=== PATIENT | female | born 2000 | race Caucasian/White ===

== ENCOUNTER 2018-07-14 21:30 | Emergency (ER) | payer SELFPAY ==
[~2018-07-14] VITALS: Ht 165.1 cm; Wt 68.5 kg
--- OUTSIDE RECORDS SUMMARY | 2018-07-14 21:35 | XMS REPORT | Referral Summary ---
Author Author [facility] Organization [facility] Address Unknown Phone Unavailable Encounter Date(s): 06/03/15 - 06/03/15 [facility] [address] [place] [address] [facility] Discharge Diagnosis: Cough Discharge Disposition: 01-Home or Self Care Attending Physician: Jeanne Morales Attending Physician: Provider, Immediate Care Admitting Physician: Provider, Immediate Care Vital Signs Most recent to 1 oldest [Reference Range]: Temperature Oral 36.7 degC [36.0-37.6 degC] (06/03/15 6:36 PM) Peripheral Pulse 120 bpm Rate [55-90 bpm] *HI* (06/03/15 6:36 PM) Blood Pressure 100/65 mmHg [90-138/45-84 mmHg] (06/03/15 6:36 PM) SpO2 99 % (06/03/15 6:36 PM) Problem List No data available for this section Allergies, Adverse Reactions, Alerts No Known Allergies Medications No Known Medications Results No data available for this section Immunizations No data available for this section Procedures No data available for this section Social History No data available for this section Assessment and Plan No data available for this section
--- OUTSIDE RECORDS SUMMARY | 2018-07-14 21:35 | XMS REPORT | Referral Summary ---
Author Author [facility] Organization [facility] Address Unknown Phone Unavailable Care Team Providers Care Skidder Name Role Phone No PCP, Pt States PCP Encounter VC Date(s): 07/12/17 - 07/12/17 [facility] [address] [place], [place] [id number] Encounter Diagnosis Threatened miscarriage (Discharge Diagnosis) - 07/12/17 Blood type, Rh negative (Discharge Diagnosis) - 07/12/17 Discharge Disposition: 01-Home or Self Care Attending Physician: Garfield Jimenez DO Admitting Physician: Garfield Jimenez DO Vital Signs Most recent to 1 oldest [Reference Range]: Temperature Oral 37.1 degC [35.8-37.3 degC] (07/12/17 8:59 AM) Peripheral Pulse 86 bpm Rate [60-100 bpm] (07/12/17 11:48 AM) Respiratory Rate 14 br/min [14-20 br/min] (07/12/17 11:48 AM) Blood Pressure 107/79 mmHg [90-140/60-90 mmHg] (07/12/17 11:48 AM) SpO2 100 % (07/12/17 11:48 AM) Problem List No Known Problems Allergies, Adverse Reactions, Alerts No Known Allergies Medications No data available for this section Results Chemistry Most recent to 1 oldest [Reference Range]: Screen, Positive Urine NPT *ABN* (07/12/17 9:31 AM) Beta hCG Qnt 75 mIU/mL 1 (07/12/17 9:54 AM) 1Result Comment: Normal Ranges for Quantitative Beta-HCG are as follows: Non- Females: 0 - 5 Gestation Wks 95% Range 0.2 - 1 4 - 50 1 - 2 50 - 500 2 - 3 100 - 5000 3 - 4 500 - 10,000 4 - 5 1,000 - 50,000 5 - 6 10,000 - 100,000 6 - 8 15,000 - 200,000 8 - 12 10,000 - 100,000 Urinalysis Most recent to 1 oldest [Reference Range]: UA Color Yellow (07/12/17 9:34 AM) UA Appear Cloudy *ABN* (07/12/17 9:34 AM) UA pH [5.0-8.0] 5.0 (07/12/17 9:34 AM) UA Leuk Est Negative [Negative] (07/12/17 9:34 AM) UA Nitrite Negative [Negative] (07/12/17 9:34 AM) UA Protein Pos 1+ [Negative] *ABN* (07/12/17 9:34 AM) UA Glucose Negative [Negative] (07/12/17 9:34 AM) UA Ketones Negative [Negative] (07/12/17 9:34 AM) UA Urobilinogen Negative [<1.0] (07/12/17 9:34 AM) UA Bili [Negative] Negative (07/12/17 9:34 AM) UA Blood [Negative] Pos 3+ *ABN* (07/12/17 9:34 AM) UA Spec Grav 1.020 [1.003-1.030] (07/12/17 9:34 AM) Type Venous (07/12/17 9:56 AM) UA WBC [0-4] 0-2 (07/12/17 9:34 AM) UA RBC [0-2] 20-50 *ABN* (07/12/17 9:34 AM) Epithelial Cells 0-2 (07/12/17 9:34 AM) UA Bacteria Rare (07/12/17 9:34 AM) UA Mucous Present (07/12/17 9:34 AM) Blood Bank Results Most recent to 1 oldest [Reference Range]: Rh Type NEG (07/12/17 9:54 AM) Microbiology Reports TEST: Affirm Vaginitis Panel STATUS: Auth (Verified) BODY SITE: SOURCE: Cervix/Vaginal COLLECTED DATE/TIME: 07/12/17 9:54 AM Affirm Vaginitis Panel Negative for Trichomonas vaginalis Negative for Gardnerella vaginalis Negative for Lorrie species Immunizations No data available for this section Procedures No data available for this section Social History No data available for this section Assessment and Plan No data available for this section
--- OUTSIDE RECORDS SUMMARY | 2018-07-14 21:36 | XMS REPORT | Continuity of Care Document ---
Author Author [facility] Organization [facility] Address Unknown Phone Unavailable Allergies Active Description Code Type Severity Reaction Onset Reported/Identified Relationship to Patient Clinical Status Yes No Known Allergies No Known Allergies Drug Allergy Unknown N/A 2013 Yes No Known Allergies NKMA N/A N/A 06/03/2015 Yes No Known Allergies NKMA N/A N/A 06/03/2015 Medications Medication Packaging Start Date Stop Date Route Dosage Sig RHo (D) immune globulin(RHo (D) immune globulin 250 intl units/1 mL injectable solution) 1 mL 07/12/2017 07/12/2017 IntraMuscular 50 mcg 50 mcg=1 mL, IntraMuscular, Once Problems Date Dx Coded Attending Type Code Diagnosis Diagnosed By 07/14/2017 Jimenez Jacob Final O20.0 Threatened 07/14/2017 Jimenez Jacob Final O26.891 Other specified related conditions, first trimester 07/14/2017 Jimenez Jacob Reason O99.89 Other specified diseases and conditions complicating , childbirth 07/14/2017 Jimenez Jacob Final Z3A.01 Less than 8 weeks gestation of 07/14/2017 Jimenez Jacob Final Z77.22 Contact with and (suspected) exposure to environmental tobacco smoke (acute Procedures There is no data. <section xmlns="urn:hl7-org:v3" xmlns:xsi="http:// www.w3.org/2001/XMLSchema-instance"> <templateId root= "[id number]" /> <templateId root= "[id number]2.2.3.1" /> <code codeSystemName="LOINC" codeSystem= "[id number]" code="08090-7" displayName="Results" /> <title>Results< /title> <text> <table> <thead> <tr> <th>Test</th> <th>Result</th> <th>Range</th> </tr> </thead> < tbody> <tr> < colspan="10">UR TEST - 10/01/13 15:40< /th> </tr> <tr> <td>UR TEST</td> <td> NEGATIVE </td> <td>NEGATIVE</td> </tr> <tr> <th colspan="10">URINALYSIS, ROUTINE - 10/01/13 15:40</th> </tr> <tr> <td>UA LEUKOCYTE ESTERASE DIPSTICK</td> <td>TRACE </td> <td>NEGATIVE</td> </tr> <tr> <td>UA NITRITE DIPSTICK </td> <td>NEGATIVE </td> <td>NEGATIVE</td> </tr> <tr> <td>UA PROTEIN DIPSTICK</td> <td>TRACE </td> < td>NEGATIVE</td> </tr> <tr> <td>UA GLUCOSE DIPSTICK</td> <td>NEGATIVE </td> <td>NEGATIVE</td> </tr> <tr > <td>UA KETONE DIPSTICK</td> <td>NEGATIVE </td> <td> NEGATIVE</td> </tr> <tr> <td>UA UROBILINOGEN DIPSTICK</td > <td>NORMAL </td> <td>NORMAL</td> </tr> <tr> <td>UA BILIRUBIN DIPSTICK</td> <td>NEGATIVE </td> <td> NEGATIVE</td> </tr> <tr> <td>UA BLOOD DIPSTICK</td> <td>NEGATIVE </td> <td>NEGATIVE</td> </tr> <tr> <td>UA SPECIFIC GRAVITY</td> <td>1.015 </td> <td>1.015- 1.025</td> </tr> <tr> <td>UR PH</td> <td>5.0 </ td> <td>5.0-7.0</td> </tr> <tr> < colspan="10 ">UA MICROSCOPIC - 10/01/13 15:40</th> </tr> <tr> <td>UA BACTERIA</td> <td>1+ </td> <td>NEGATIVE</td> </tr> <tr> <td>UA EPITHELIAL CELLS</td> <td>2+ epi/hpf</td> <td>0 - 1+</td> </tr> <tr> <td>UA MUCUS</td> <td>3+ </td> <td>NEG TO 1+</td> </tr> <tr> < td>UA RBC</td> <td>0-3 rbc/hpf</td> <td>0 - 3</td> </tr > <tr> <td>UA VOLUME FOR EXAM</td> <td>12.0 mL</td> <td>(12mL STD)</td> </tr> <tr> <td>UA WBC</td> <td>2-5 wbc/hpf</td> <td>0 - 5</td> </tr> <tr> < colspan="10">GLUCOSE (POC) - 10/01/13 15:58</th> </tr> <tr> <td>GLUCOSE (POC)</td> <td>107 mg/dL</td> <td>70 -99</td> </tr> <tr> < colspan="10">CBC W/DIFF - 16:00</th> </tr> <tr> <td>BASOPHIL #</td> <td >0.1 k/cumm</td> <td>0.0-0.2</td> </tr> <tr> <td >BASOPHIL %</td> <td>1 %</td> <td>0-1</td> </tr > <tr> <td>EOSINOPHIL #</td> <td>0.2 k/cumm</td> <td>0.1-0.5</td> </tr> <tr> <td>EOSINOPHIL %</td > <td>2 %</td> <td>2-4</td> </tr> <tr> <td>GRANULOCYTE #</td> <td>7.6 k/cumm</td> <td>2.0-9.0</ td> </tr> <tr> <td>GRANULOCYTE %</td> <td> 68 %</td> <td>50-75</td> </tr> <tr> <td> LYMPHOCYTE #</td> <td>2.3 k/cumm</td> <td>1.0-4.0</td> </tr> <tr> <td>LYMPHOCYTE %</td> <td>21 %</td> <td>20-30</td> </tr> <tr> <td>MEAN CELL HGB</td > <td>24.4 pg</td> <td>27.0-33.0</td> </tr> <tr > <td>MEAN CELL HGB CONCENTRATION</td> <td>32.4 g/dL</td> <td>32.0-37.0</td> </tr> <tr> <td>MEAN CELL VOLUME< /td> <td>75.4 fl</td> <td>79.0-95.0</td> </tr> < tr> <td>MONOCYTE #</td> <td>0.9 k/cumm</td> <td>0.1- 1.0</td> </tr> <tr> <td>MONOCYTE %</td> <td> 8 %</td> <td>4-6</td> </tr> <tr> <td>RED BLOOD CELL</td> <td>4.51 m/cumm</td> <td>4.00-6.00</td> </tr> <tr> <td>RED CELL DISTRIBUTION WIDTH</td> <td> 15.4 %</td> <td>11.0-15.6</td> </tr> <tr> < td>WHITE BLOOD CELL</td> <td>11.0 k/cumm</td> <td>5.0-10.0</td > </tr> <tr> <td>HEMOGLOBIN</td> <td>11.0 gm/dL< /td> <td>12.0-16.0</td> </tr> <tr> <td> HEMATOCRIT</td> <td>34.0 %</td> <td>36.0-46.0</td> </tr> <tr> <td>PLATELET COUNT</td> <td>303 k/cumm</td> <td>150-450</td> </tr> <tr> <th colspan="10"> METABOLIC PANEL, BASIC - 10/01/13 16:00</th> </tr> <tr> < td>POTASSIUM</td> <td>4.5 mmol/L</td> <td>3.5-5.3</td> </tr> <tr> <td>ANION GAP</td> <td>12 mmol/L</td> <td>5-15</td> </tr> <tr> <td>GLUCOSE</td> < td>105 mg/dL</td> <td>70-99</td> </tr> <tr> <td> CALCIUM</td> <td>9.3 mg/dL</td> <td>8.5-10.1</td> </tr > <tr> <td>BLOOD UREA NITROGEN</td> <td>8 mg/dL</td> <td>7-20</td> </tr> <tr> <td>CREATININE</td> <td>0.6 mg/dL</td> <td>0.5-1.0</td> </tr> <tr> <td>SODIUM</td> <td>144 mmol/L</td> <td>135-148</td> </tr> <tr> <td>CHLORIDE</td> <td>106 mmol/L</td> <td>98-110</td> </tr> <tr> <td>CARBON DIOXIDE</ td> <td>26 mmol/L</td> <td>21-32</td> </tr> <tr > <th colspan="10"> Screen, Urine NPT - 07/12/17 09:31</th> </tr> <tr> <td> Screen, Urine NPT</td> < td>Positive NA</td> <td /> </tr> <tr> <th colspan="10">Urinalysis with reflex microscopic - 07/12/17 09:34</th> </ tr> <tr> <td>Appearance</td> <td>Cloudy NA</td> <td /> </tr> <tr> <td>Bilirubin</td> <td> Negative NA</td> <td>Negative</td> </tr> <tr> < td>Blood</td> <td>Pos 3+ NA</td> <td>Negative</td> </tr > <tr> <td>Color</td> <td>Yellow NA</td> <td / > </tr> <tr> <td>Glucose, Urine</td> <td> Negative </td> <td>Negative</td> </tr> <tr> <td> Ketones</td> <td>Negative </td> <td>Negative</td> </tr > <tr> <td>Leukocyte Esterase</td> <td>Negative NA</td > <td>Negative</td> </tr> <tr> <td>Nitrites</td > <td>Negative NA</td> <td>Negative</td> </tr> < tr> <td>pH</td> <td>5.0 NA</td> <td>5.0-8.0</td> </tr> <tr> <td>Protein</td> <td>Pos 1+ NA</td> <td>Negative</td> </tr> <tr> <td>Specific [place]</ td> <td>1.020 NA</td> <td>1.003-1.030</td> </tr> <tr> <td>UA Collection type</td> <td>Clean Catch NA</td> <td /> </tr> <tr> <td>Urobilinogen</td> < td>Negative mg/dL</td> <td><1.0</td> </tr> <tr> <th colspan="10">Urine Microscopic - 07/12/17 09:34</th> </tr> <tr> <td>Bacteria</td> <td>Rare NA</td> <td /> </tr> <tr> <td>Epithelial Cells</td> <td>0 /HPF</td > <td /> </tr> <tr> <td>RBC, Urine</td> <td>20 /HPF</td> <td>0-2</td> </tr> <tr> <td> Urine Mucus</td> <td>Present NA</td> <td /> </tr> <tr> <td>WBC, Urine</td> <td>0 /HPF</td> <td>0-4</ td> </tr> <tr> <th colspan="10">RH Type - 07/12/17 09:54< /th> </tr> <tr> <td>RH Type</td> <td> NA</td> <td /> </tr> <tr> <th colspan="10">HCG Quantitative - 07/12/17 09:54</th> </tr> <tr> <td>HCG Quantitative</td> <td>75 mIU/mL</td> <td /> </tr> <tr> <th colspan="10">URINE CULTURE - 07/12/17 19:55</th> </ tr> <tr> <td>Microbiology</td> <td> </td> <td /> </tr> <tr> <th colspan="10">URINALYSIS, ROUTINE - 19:55</th> </tr> <tr> <td>UA SPECIFIC GRAVITY</td> <td>1.022 </td> <td>1.015-1.025</td> </tr> <tr > <th colspan="10">UA MICROSCOPIC - 07/12/17 19:55</th> </tr> <tr> <td>UA BACTERIA</td> <td>2+ </td> <td> NEGATIVE</td> </tr> <tr> <td>UA EPITHELIAL CELLS</td> <td>3+ epi/hpf</td> <td>0 - 1+</td> </tr> <tr> <td>UA RBC</td> <td>PACKED FIELD rbc/hpf</td> <td>0 - 3 </td> </tr> <tr> <td>UA VOLUME FOR EXAM</td> <td >4.0 mL</td> <td>(12mL STD)</td> </tr> <tr> <td> UA WBC</td> <td>10-20 wbc/hpf</td> <td>0 - 5</td> </tr > <tr> <th colspan="10">UR TEST - 07/12/17 19:55</th> </tr> <tr> <td>UR TEST</td> <td> POSITIVE </td> <td>NEGATIVE</td> </tr> <tr> <th colspan="10">HCG QUANT INTACT - 07/12/17 19:56</th> </tr> <tr> <td>HCG QUANT INTACT</td> <td>51 mIU/mL</td> <td /> </tr> <tr> <th colspan="10">HGB HCT - 07/12/17 19:56</th > </tr> <tr> <td>MEAN CELL VOLUME</td> <td>74.9 fl</td> <td>80.0-100.0</td> </tr> <tr> <td> HEMOGLOBIN</td> <td>9.9 gm/dL</td> <td>12.0-16.0</td> < /tr> <tr> <td>HEMATOCRIT</td> <td>33.4 %</td> <td>37.0-47.0</td> </tr> </tbody> </table> </text> <entry > <organizer moodCode="EVN" classCode="BATTERY"> <templateId root= "[id number].1" /> <id nullFlavor="NA" /> <code codeSystem="local" code="PREGU" displayName="UR TEST" /> < statusCode code="completed" /> <component> <observation moodCode= "EVN" classCode="OBS"> <templateId root="[id number].2 " /> <id nullFlavor="NA" /> <code codeSystem="local" code= "PREGU" displayName="UR TEST" /> <statusCode code="completed " /> <effectiveTime value="[id number]" /> <value unit="" xsi :type="PQ" value="NEGATIVE" /> <referenceRange> < observationRange> <text>NEGATIVE</text> </ observationRange> </referenceRange> </observation> </ component> </organizer> </entry> <entry> <organizer moodCode="EVN" classCode="BATTERY"> <templateId root="2.16.840.1.946000.10..22.4.1" /> <id nullFlavor="NA" /> <code codeSystem="local" code="UA" displayName= "URINALYSIS, ROUTINE" /> <statusCode code="completed" /> <component> <observation moodCode="EVN" classCode="OBS"> <templateId root= "216.840.1.116355.10...4.2" /> <id nullFlavor="NA" /> < code codeSystem="local" code="LEUESU" displayName="UA LEUKOCYTE ESTERASE DIPSTICK" /> <statusCode code="completed" /> <effectiveTime value="" /> <value unit="" xsi:type="PQ" value="TRACE" /> <interpretationCode codeSystem="local" code="*" /> < referenceRange> <observationRange> <text>NEGATIVE</text > </observationRange> </referenceRange> </observation > </component> <component> <observation moodCode="EVN" classCode="OBS"> <templateId root="[id number].2" /> <id nullFlavor="NA" /> <code codeSystem="local" code="NITRIU" displayName="UA NITRITE DIPSTICK" /> <statusCode code="completed" /> <effectiveTime value="" /> <value unit="" xsi:type= "PQ" value="NEGATIVE" /> <referenceRange> <observationRange > <text>NEGATIVE</text> </observationRange> </ referenceRange> </observation> </component> <component> <observation moodCode="EVN" classCode="OBS"> <templateId root= "16.840.1.471754.10...4.2" /> <id nullFlavor="NA" /> < code codeSystem="local" code="PROTEIU" displayName="UA PROTEIN DIPSTICK" /> <statusCode code="completed" /> <effectiveTime value= "" /> <value unit="" xsi:type="PQ" value="TRACE" /> <interpretationCode codeSystem="local" code="*" /> <referenceRange> <observationRange> <text>NEGATIVE</text> </ observationRange> </referenceRange> </observation> </ component> <component> <observation moodCode="EVN" classCode="OBS"> <templateId root="06.03.840.1.514482.10.4.2" /> <id nullFlavor="NA" /> <code codeSystem="local" code="DGLUU" displayName= "UA GLUCOSE DIPSTICK" /> <statusCode code="completed" /> < effectiveTime value="" /> <value unit="" xsi:type="PQ" value="NEGATIVE" /> <referenceRange> <observationRange> <text>NEGATIVE</text> </observationRange> </ referenceRange> </observation> </component> <component> <observation moodCode="EVN" classCode="OBS"> <templateId root= "840.1.018503.02.04.22.4.2" /> <id nullFlavor="NA" /> < code codeSystem="local" code="KETONU" displayName="UA KETONE DIPSTICK" /> <statusCode code="completed" /> <effectiveTime value=" " /> <value unit="" xsi:type="PQ" value="NEGATIVE" /> < referenceRange> <observationRange> <text>NEGATIVE</text > </observationRange> </referenceRange> </observation > </component> <component> <observation moodCode="EVN" classCode="OBS"> <templateId root="840.1.891529.10.4.2" /> <id nullFlavor="NA" /> <code codeSystem="local" code="UROBILU " displayName="UA UROBILINOGEN DIPSTICK" /> <statusCode code="completed " /> <effectiveTime value="" /> <value unit="" xsi :type="PQ" value="NORMAL" /> <referenceRange> < observationRange> <text>NORMAL</text> </observationRange > </referenceRange> </observation> </component> < component> <observation moodCode="EVN" classCode="OBS"> < templateId root="[id number].2" /> <id nullFlavor="NA " /> <code codeSystem="local" code="BILU" displayName="UA BILIRUBIN DIPSTICK" /> <statusCode code="completed" /> <effectiveTime value="" /> <value unit="" xsi:type="PQ" value="NEGATIVE" / > <referenceRange> <observationRange> <text> NEGATIVE</text> </observationRange> </referenceRange> </observation> </component> <component> <observation moodCode ="EVN" classCode="OBS"> <templateId root= "06.03.840.1.061428.02.04.22.4.2" /> <id nullFlavor="NA" /> < code codeSystem="local" code="YANNICK" displayName="UA BLOOD DIPSTICK" /> < statusCode code="completed" /> <effectiveTime value="" /> <value unit="" xsi:type="PQ" value="NEGATIVE" /> < referenceRange> <observationRange> <text>NEGATIVE</text > </observationRange> </referenceRange> </observation > </component> <component> <observation moodCode="EVN" classCode="OBS"> <templateId root="16.840.1.642675.02.04.22.4.2" /> <id nullFlavor="NA" /> <code codeSystem="local" code="SPGRU" displayName="UA SPECIFIC GRAVITY" /> <statusCode code="completed" /> <effectiveTime value="" /> <value unit="" xsi:type= "PQ" value="1.015" /> <referenceRange> <observationRange> <text>1.015-1.025</text> </observationRange> </ referenceRange> </observation> </component> <component> <observation moodCode="EVN" classCode="OBS"> <templateId root= "840.1.289218.10.4.2" /> <id nullFlavor="NA" /> < code codeSystem="local" code="MOHAMUD" displayName="UR PH" /> <statusCode code="completed" /> <effectiveTime value="" /> < value unit="" xsi:type="PQ" value="5.0" /> <referenceRange> <observationRange> <text>5.0-7.0</text> </ observationRange> </referenceRange> </observation> </ component> </organizer> </entry> <entry> <organizer moodCode="EVN" classCode="BATTERY"> <templateId root="840.1.611630.02.04.22.4.1" /> <id nullFlavor="NA" /> <code codeSystem="local" code="UAMICRO" displayName="UA MICROSCOPIC" /> <statusCode code="completed" /> < component> <observation moodCode="EVN" classCode="OBS"> < templateId root="840.1.782848.1022.4.2" /> <id nullFlavor="NA " /> <code codeSystem="local" code="BACU" displayName="UA BACTERIA" /> <statusCode code="completed" /> <effectiveTime value= "[id number]" /> <value unit="" xsi:type="PQ" value="1+" /> < interpretationCode codeSystem="local" code="*" /> <referenceRange> <observationRange> <text>NEGATIVE</text> </ observationRange> </referenceRange> </observation> </ component> <component> <observation moodCode="EVN" classCode="OBS"> <templateId root="16.840.1.004838.02.04.22.4.2" /> <id nullFlavor="NA" /> <code codeSystem="local" code="EPIU" displayName=" UA EPITHELIAL CELLS" /> <statusCode code="completed" /> < effectiveTime value="" /> <value unit="epi/hpf" xsi:type= "PQ" value="2+" /> <interpretationCode codeSystem="local" code="*" /> <referenceRange> <observationRange> <text>0 - 1 +</text> </observationRange> </referenceRange> </ observation> </component> <component> <observation moodCode= "EVN" classCode="OBS"> <templateId root="16.840.1.533541.10.22.4.2 " /> <id nullFlavor="NA" /> <code codeSystem="local" code= "MUCUSU" displayName="UA MUCUS" /> <statusCode code="completed" /> <effectiveTime value="[id number]" /> <value unit="" xsi:type= "PQ" value="3+" /> <interpretationCode codeSystem="local" code="*" /> <referenceRange> <observationRange> <text>NEG TO 1+</text> </observationRange> </referenceRange> </ observation> </component> <component> <observation moodCode= "EVN" classCode="OBS"> <templateId root="2.16.840.1.228467.10..22.4.2 " /> <id nullFlavor="NA" /> <code codeSystem="local" code= "RBCU" displayName="UA RBC" /> <statusCode code="completed" /> <effectiveTime value="" /> <value unit="rbc/hpf" xsi:type ="PQ" value="0-3" /> <referenceRange> <observationRange> <text>0 - 3</text> </observationRange> </ referenceRange> </observation> </component> <component> <observation moodCode="EVN" classCode="OBS"> <templateId root= "216.840.1.027322.10..22.4.2" /> <id nullFlavor="NA" /> < code codeSystem="local" code="UAVOL" displayName="UA VOLUME FOR EXAM" /> <statusCode code="completed" /> <effectiveTime value="" /> <value unit="mL" xsi:type="PQ" value="12.0" /> < referenceRange> <observationRange> <text>(12mL STD)</ text> </observationRange> </referenceRange> </ observation> </component> <component> <observation moodCode= "EVN" classCode="OBS"> <templateId root="216.840.1.036019.10.22.4.2 " /> <id nullFlavor="NA" /> <code codeSystem="local" code= "WBCU" displayName="UA WBC" /> <statusCode code="completed" /> <effectiveTime value="" /> <value unit="wbc/hpf" xsi:type ="PQ" value="2-5" /> <referenceRange> <observationRange> <text>0 - 5</text> </observationRange> </ referenceRange> </observation> </component> </organizer> </entry > <entry> <organizer moodCode="EVN" classCode="BATTERY"> <templateId root="840.1.261083.02.04.22.4.1" /> <id nullFlavor="NA" /> <code codeSystem="local" code="GLUMON" displayName="GLUCOSE (POC)" /> < statusCode code="completed" /> <component> <observation moodCode= "EVN" classCode="OBS"> <templateId root="840.1.538181.02.04.224.2 " /> <id nullFlavor="NA" /> <code codeSystem="local" code= "GLUMON" displayName="GLUCOSE (POC)" /> <statusCode code="completed" / > <effectiveTime value="[id number]" /> <value unit="mg/dL" xsi:type="PQ" value="107" /> <interpretationCode codeSystem="local" code="*" /> <referenceRange> <observationRange> <text>70-99</text> </observationRange> </referenceRange> </observation> </component> </organizer> </entry> <entry> < organizer moodCode="EVN" classCode="BATTERY"> <templateId root= "840.1.370588.02.04.22.4.1" /> <id nullFlavor="NA" /> <code codeSystem="local" code="CBCD" displayName="CBC W/DIFF" /> <statusCode code ="completed" /> <component> <observation moodCode="EVN" classCode= "OBS"> <templateId root="840.1.659198.02.04.22.4.2" /> < id nullFlavor="NA" /> <code codeSystem="local" code="BA#" displayName= "BASOPHIL #" /> <statusCode code="completed" /> < effectiveTime value="" /> <value unit="k/cumm" xsi:type="PQ " value="0.1" /> <referenceRange> <observationRange> <text>0.0-0.2</text> </observationRange> </ referenceRange> </observation> </component> <component> <observation moodCode="EVN" classCode="OBS"> <templateId root= "840.1.231070.10.2022.4.2" /> <id nullFlavor="NA" /> < code codeSystem="local" code="BA%" displayName="BASOPHIL %" /> <statusCode code="completed" /> <effectiveTime value="" /> <value unit="%" xsi:type="PQ" value="1" /> < referenceRange> <observationRange> <text>0-1</text> </observationRange> </referenceRange> </observation> </component> <component> <observation moodCode="EVN" classCode= "OBS"> <templateId root="840.1.180760.10.20.22.4.2" /> < id nullFlavor="NA" /> <code codeSystem="local" code="EO#" displayName= "EOSINOPHIL #" /> <statusCode code="completed" /> < effectiveTime value="" /> <value unit="k/cumm" xsi:type="PQ " value="0.2" /> <referenceRange> <observationRange> <text>0.1-0.5</text> </observationRange> </ referenceRange> </observation> </component> <component> <observation moodCode="EVN" classCode="OBS"> <templateId root= "06.03.830.1.001788.10.22.4.2" /> <id nullFlavor="NA" /> < code codeSystem="local" code="EO%" displayName="EOSINOPHIL %" /> <statusCode code="completed" /> <effectiveTime value="" /> <value unit="%" xsi:type="PQ" value="2" /> < referenceRange> <observationRange> <text>2-4</text> </observationRange> </referenceRange> </observation> </component> <component> <observation moodCode="EVN" classCode= "OBS"> <templateId root="16.840.1.802846.10.4.2" /> < id nullFlavor="NA" /> <code codeSystem="local" code="GR#" displayName= "GRANULOCYTE #" /> <statusCode code="completed" /> < effectiveTime value="" /> <value unit="k/cumm" xsi:type="PQ " value="7.6" /> <referenceRange> <observationRange> <text>2.0-9.0</text> </observationRange> </ referenceRange> </observation> </component> <component> <observation moodCode="EVN" classCode="OBS"> <templateId root= "16.840.1.412586.02.04.22.4.2" /> <id nullFlavor="NA" /> < code codeSystem="local" code="GR%" displayName="GRANULOCYTE %" /> <statusCode code="completed" /> <effectiveTime value=" " /> <value unit="%" xsi:type="PQ" value="68" /> < referenceRange> <observationRange> <text>50-75</text> </observationRange> </referenceRange> </observation> </component> <component> <observation moodCode="EVN" classCode= "OBS"> <templateId root="216.840.1.423795.02.04.224.2" /> < id nullFlavor="NA" /> <code codeSystem="local" code="LY#" displayName= "LYMPHOCYTE #" /> <statusCode code="completed" /> < effectiveTime value="" /> <value unit="k/cumm" xsi:type="PQ " value="2.3" /> <referenceRange> <observationRange> <text>1.0-4.0</text> </observationRange> </ referenceRange> </observation> </component> <component> <observation moodCode="EVN" classCode="OBS"> <templateId root= "[id number]" /> <id nullFlavor="NA" /> < code codeSystem="local" code="LY%" displayName="LYMPHOCYTE %" /> <statusCode code="completed" /> <effectiveTime value="" /> <value unit="%" xsi:type="PQ" value="21" /> < referenceRange> <observationRange> <text>20-30</text> </observationRange> </referenceRange> </observation> </component> <component> <observation moodCode="EVN" classCode= "OBS"> <templateId root="[id number]" /> < id nullFlavor="NA" /> <code codeSystem="local" code="MCH" displayName= "MEAN CELL HGB" /> <statusCode code="completed" /> < effectiveTime value="" /> <value unit="pg" xsi:type="PQ" value="24.4" /> <interpretationCode codeSystem="local" code="*" /> <referenceRange> <observationRange> <text>27.0- 33.0</text> </observationRange> </referenceRange> </ observation> </component> <component> <observation moodCode= "EVN" classCode="OBS"> <templateId root="[id number] " /> <id nullFlavor="NA" /> <code codeSystem="local" code= "MCHC" displayName="MEAN CELL HGB CONCENTRATION" /> <statusCode code= "completed" /> <effectiveTime value="" /> <value unit="g/dL" xsi:type="PQ" value="32.4" /> <referenceRange> < observationRange> <text>32.0-37.0</text> </ observationRange> </referenceRange> </observation> </ component> <component> <observation moodCode="EVN" classCode="OBS"> <templateId root="[id number]" /> <id nullFlavor="NA" /> <code codeSystem="local" code="MCV" displayName= "MEAN CELL VOLUME" /> <statusCode code="completed" /> < effectiveTime value="" /> <value unit="fl" xsi:type="PQ" value="75.4" /> <interpretationCode codeSystem="local" code="*" /> <referenceRange> <observationRange> <text>79.0- 95.0</text> </observationRange> </referenceRange> </ observation> </component> <component> <observation moodCode= "EVN" classCode="OBS"> <templateId root="[id number] " /> <id nullFlavor="NA" /> <code codeSystem="local" code="MO# " displayName="MONOCYTE #" /> <statusCode code="completed" /> <effectiveTime value="" /> <value unit="k/cumm" xsi:type= "PQ" value="0.9" /> <referenceRange> <observationRange> <text>0.1-1.0</text> </observationRange> </ referenceRange> </observation> </component> <component> <observation moodCode="EVN" classCode="OBS"> <templateId root= "[id number]..4.2" /> <id nullFlavor="NA" /> < code codeSystem="local" code="MO%" displayName="MONOCYTE %" /> <statusCode code="completed" /> <effectiveTime value="" /> <value unit="%" xsi:type="PQ" value="8" /> < interpretationCode codeSystem="local" code="*" /> <referenceRange> <observationRange> <text>4-6</text> </ observationRange> </referenceRange> </observation> </ component> <component> <observation moodCode="EVN" classCode="OBS"> <templateId root="[id number]..4.2" /> <id nullFlavor="NA" /> <code codeSystem="local" code="RBC" displayName=" RED BLOOD CELL" /> <statusCode code="completed" /> < effectiveTime value="" /> <value unit="m/cumm" xsi:type="PQ " value="4.51" /> <referenceRange> <observationRange> <text>4.00-6.00</text> </observationRange> </ referenceRange> </observation> </component> <component> <observation moodCode="EVN" classCode="OBS"> <templateId root= "[id number]" /> <id nullFlavor="NA" /> < code codeSystem="local" code="RDW" displayName="RED CELL DISTRIBUTION WIDTH" /> <statusCode code="completed" /> <effectiveTime value= "" /> <value unit="%" xsi:type="PQ" value="15.4" /> <referenceRange> <observationRange> <text>11.0- 15.6</text> </observationRange> </referenceRange> </ observation> </component> <component> <observation moodCode= "EVN" classCode="OBS"> <templateId root="06.03.840.1.863856.02.04.22.4.2 " /> <id nullFlavor="NA" /> <code codeSystem="local" code="WBC " displayName="WHITE BLOOD CELL" /> <statusCode code="completed" /> <effectiveTime value="[id number]" /> <value unit="k/cumm" xsi: type="PQ" value="11.0" /> <interpretationCode codeSystem="local" code= "*" /> <referenceRange> <observationRange> < text>5.0-10.0</text> </observationRange> </referenceRange> </observation> </component> <component> <observation moodCode="EVN" classCode="OBS"> <templateId root= "16.840.1.602966.22.4.2" /> <id nullFlavor="NA" /> < code codeSystem="local" code="HGBT" displayName="HEMOGLOBIN" /> < statusCode code="completed" /> <effectiveTime value="" /> <value unit="gm/dL" xsi:type="PQ" value="11.0" /> < interpretationCode codeSystem="local" code="*" /> <referenceRange> <observationRange> <text>12.0-16.0</text> </ observationRange> </referenceRange> </observation> </ component> <component> <observation moodCode="EVN" classCode="OBS"> <templateId root="2.16.840.1.903447.10.20.22.4.2" /> <id nullFlavor="NA" /> <code codeSystem="local" code="HCTT" displayName= "HEMATOCRIT" /> <statusCode code="completed" /> < effectiveTime value="" /> <value unit="%" xsi:type="PQ " value="34.0" /> <interpretationCode codeSystem="local" code="*" /> <referenceRange> <observationRange> <text>36.0- 46.0</text> </observationRange> </referenceRange> </ observation> </component> <component> <observation moodCode= "EVN" classCode="OBS"> <templateId root="2.16.840.1.687668.10.20.22.4.2 " /> <id nullFlavor="NA" /> <code codeSystem="local" code="PLT " displayName="PLATELET COUNT" /> <statusCode code="completed" /> <effectiveTime value="" /> <value unit="k/cumm" xsi: type="PQ" value="303" /> <referenceRange> <observationRange > <text>150-450</text> </observationRange> </ referenceRange> </observation> </component> </organizer> </entry > <entry> <organizer moodCode="EVN" classCode="BATTERY"> <templateId root="06.03.840.1.849335.10..4.1" /> <id nullFlavor="NA" /> <code codeSystem="local" code="METAB" displayName="METABOLIC PANEL, BASIC" /> < statusCode code="completed" /> <component> <observation moodCode= "EVN" classCode="OBS"> <templateId root="840.1.874980.02.04.22.4.2 " /> <id nullFlavor="NA" /> <code codeSystem="local" code="K" displayName="POTASSIUM" /> <statusCode code="completed" /> < effectiveTime value="" /> <value unit="mmol/L" xsi:type="PQ " value="4.5" /> <referenceRange> <observationRange> <text>3.5-5.3</text> </observationRange> </ referenceRange> </observation> </component> <component> <observation moodCode="EVN" classCode="OBS"> <templateId root= "840.1.555891.02.04.22.4.2" /> <id nullFlavor="NA" /> < code codeSystem="local" code="GAP" displayName="ANION GAP" /> < statusCode code="completed" /> <effectiveTime value="" /> <value unit="mmol/L" xsi:type="PQ" value="12" /> < referenceRange> <observationRange> <text>5-15</text> </observationRange> </referenceRange> </observation> </component> <component> <observation moodCode="EVN" classCode= "OBS"> <templateId root="06.03.840.1.864957.02.04.22.4.2" /> < id nullFlavor="NA" /> <code codeSystem="local" code="GLU" displayName= "GLUCOSE" /> <statusCode code="completed" /> <effectiveTime value="" /> <value unit="mg/dL" xsi:type="PQ" value="105" / > <interpretationCode codeSystem="local" code="*" /> < referenceRange> <observationRange> <text>70-99</text> </observationRange> </referenceRange> </observation> </component> <component> <observation moodCode="EVN" classCode= "OBS"> <templateId root="216.840.1.514219.10..22.4.2" /> < id nullFlavor="NA" /> <code codeSystem="local" code="CA" displayName= "CALCIUM" /> <statusCode code="completed" /> <effectiveTime value="" /> <value unit="mg/dL" xsi:type="PQ" value="9.3" / > <referenceRange> <observationRange> <text>8.5 -10.1</text> </observationRange> </referenceRange> </ observation> </component> <component> <observation moodCode= "EVN" classCode="OBS"> <templateId root="216.840.1.804636.10..22.4.2 " /> <id nullFlavor="NA" /> <code codeSystem="local" code="BUN " displayName="BLOOD UREA NITROGEN" /> <statusCode code="completed" /> <effectiveTime value="" /> <value unit="mg/dL" xsi:type="PQ" value="8" /> <referenceRange> < observationRange> <text>7-20</text> </observationRange> </referenceRange> </observation> </component> < component> <observation moodCode="EVN" classCode="OBS"> < templateId root="216.840.1.486818.10..22.4.2" /> <id nullFlavor="NA " /> <code codeSystem="local" code="CREAT" displayName="CREATININE" /> <statusCode code="completed" /> <effectiveTime value= "" /> <value unit="mg/dL" xsi:type="PQ" value="0.6" /> <referenceRange> <observationRange> <text>0.5-1.0< /text> </observationRange> </referenceRange> </ observation> </component> <component> <observation moodCode= "EVN" classCode="OBS"> <templateId root="16.840.1.269856.10..4.2 " /> <id nullFlavor="NA" /> <code codeSystem="local" code="NA " displayName="SODIUM" /> <statusCode code="completed" /> < effectiveTime value="" /> <value unit="mmol/L" xsi:type="PQ " value="144" /> <referenceRange> <observationRange> <text>135-148</text> </observationRange> </ referenceRange> </observation> </component> <component> <observation moodCode="EVN" classCode="OBS"> <templateId root= "16.840.1.824857.1022.4.2" /> <id nullFlavor="NA" /> < code codeSystem="local" code="CL" displayName="CHLORIDE" /> < statusCode code="completed" /> <effectiveTime value="" /> <value unit="mmol/L" xsi:type="PQ" value="106" /> < referenceRange> <observationRange> <text>98-110</text> </observationRange> </referenceRange> </observation> </component> <component> <observation moodCode="EVN" classCode ="OBS"> <templateId root="2.16.840.1.784422.10..22.4.2" /> < id nullFlavor="NA" /> <code codeSystem="local" code="CO2" displayName= "CARBON DIOXIDE" /> <statusCode code="completed" /> < effectiveTime value="[id number]" /> <value unit="mmol/L" xsi:type="PQ " value="26" /> <referenceRange> <observationRange> <text>21-32</text> </observationRange> </ referenceRange> </observation> </component> </organizer> </entry > <entry> <organizer moodCode="EVN" classCode="BATTERY"> <templateId root="2.16.840.1.042942.10..22.4.1" /> <id nullFlavor="NA" /> <code codeSystem="local" code="PREGN" displayName=" Screen, Urine NPT" /> <statusCode code="completed" /> <component> <observation moodCode ="EVN" classCode="OBS"> <templateId root= "2.16.840.1.154230.10.20.22.4.2" /> <id nullFlavor="NA" /> < code codeSystem="local" code="PREGN" displayName=" Screen, Urine NPT" / > <statusCode code="completed" /> <effectiveTime value= "999868301291" /> <value unit="NA" xsi:type="PQ" value="Positive" /> <interpretationCode codeSystem="local" code="*" /> < referenceRange> <observationRange> <text /> < /observationRange> </referenceRange> </observation> </ component> </organizer> </entry> <entry> <organizer moodCode="EVN" classCode="BATTERY"> <templateId root="840.1.957439.10..4.1" /> <id nullFlavor="NA" /> <code codeSystem="local" code="UA" displayName= "Urinalysis with reflex microscopic" /> <statusCode code="completed" /> <component> <observation moodCode="EVN" classCode="OBS"> < templateId root="840.1.703555.02.04.22.4.2" /> <id nullFlavor="NA " /> <code codeSystem="local" code="UAPP" displayName="Appearance" /> <statusCode code="completed" /> <effectiveTime value= "" /> <value unit="NA" xsi:type="PQ" value="Cloudy" /> <interpretationCode codeSystem="local" code="*" /> < referenceRange> <observationRange> <text /> < /observationRange> </referenceRange> </observation> </ component> <component> <observation moodCode="EVN" classCode="OBS"> <templateId root="840.1.145063.02.04.22.4.2" /> <id nullFlavor="NA" /> <code codeSystem="local" code="UBIL" displayName= "Bilirubin" /> <statusCode code="completed" /> <effectiveTime value="" /> <value unit="NA" xsi:type="PQ" value="Negative " /> <referenceRange> <observationRange> <text> Negative</text> </observationRange> </referenceRange> </observation> </component> <component> <observation moodCode ="EVN" classCode="OBS"> <templateId root= "840.1.802726.02.04.22.4.2" /> <id nullFlavor="NA" /> < code codeSystem="local" code="UBLD" displayName="Blood" /> <statusCode code="completed" /> <effectiveTime value="" /> < value unit="NA" xsi:type="PQ" value="Pos 3+" /> <interpretationCode codeSystem="local" code="*" /> <referenceRange> < observationRange> <text>Negative</text> </ observationRange> </referenceRange> </observation> </ component> <component> <observation moodCode="EVN" classCode="OBS"> <templateId root="216.840.1.933788.10..4.2" /> <id nullFlavor="NA" /> <code codeSystem="local" code="UCOLR" displayName= "Color" /> <statusCode code="completed" /> <effectiveTime value="" /> <value unit="NA" xsi:type="PQ" value="Yellow" / > <referenceRange> <observationRange> <text /> </observationRange> </referenceRange> </observation > </component> <component> <observation moodCode="EVN" classCode="OBS"> <templateId root="216.840.1.281778.10...4.2" /> <id nullFlavor="NA" /> <code codeSystem="local" code="UGLU" displayName="Glucose, Urine" /> <statusCode code="completed" /> <effectiveTime value="" /> <value unit="" xsi:type="PQ" value="Negative" /> <referenceRange> <observationRange> <text>Negative</text> </observationRange> </ referenceRange> </observation> </component> <component> <observation moodCode="EVN" classCode="OBS"> <templateId root= "216.840.1.057049.10.4.2" /> <id nullFlavor="NA" /> < code codeSystem="local" code="UKET" displayName="Ketones" /> < statusCode code="completed" /> <effectiveTime value="" /> <value unit="" xsi:type="PQ" value="Negative" /> < referenceRange> <observationRange> <text>Negative</text > </observationRange> </referenceRange> </observation > </component> <component> <observation moodCode="EVN" classCode="OBS"> <templateId root="216.840.1.958540.02.04.22.4.2" /> <id nullFlavor="NA" /> <code codeSystem="local" code="ULEU" displayName="Leukocyte Esterase" /> <statusCode code="completed" /> <effectiveTime value="" /> <value unit="NA" xsi:type ="PQ" value="Negative" /> <referenceRange> <observationRange > <text>Negative</text> </observationRange> </ referenceRange> </observation> </component> <component> <observation moodCode="EVN" classCode="OBS"> <templateId root= "16.840.1.838538.02.04.22.4.2" /> <id nullFlavor="NA" /> < code codeSystem="local" code="UNIT" displayName="Nitrites" /> < statusCode code="completed" /> <effectiveTime value="" /> <value unit="NA" xsi:type="PQ" value="Negative" /> < referenceRange> <observationRange> <text>Negative</text > </observationRange> </referenceRange> </observation > </component> <component> <observation moodCode="EVN" classCode="OBS"> <templateId root="16.840.1.354273.10..22.4.2" /> <id nullFlavor="NA" /> <code codeSystem="local" code="UPH" displayName="pH" /> <statusCode code="completed" /> < effectiveTime value="" /> <value unit="NA" xsi:type="PQ" value="5.0" /> <referenceRange> <observationRange> <text>5.0-8.0</text> </observationRange> </ referenceRange> </observation> </component> <component> <observation moodCode="EVN" classCode="OBS"> <templateId root= "06.03.840.1.031782.10..4.2" /> <id nullFlavor="NA" /> < code codeSystem="local" code="UPRO" displayName="Protein" /> < statusCode code="completed" /> <effectiveTime value="" /> <value unit="NA" xsi:type="PQ" value="Pos 1+" /> < interpretationCode codeSystem="local" code="*" /> <referenceRange> <observationRange> <text>Negative</text> </ observationRange> </referenceRange> </observation> </ component> <component> <observation moodCode="EVN" classCode="OBS"> <templateId root="16.840.1.121036.10..22.4.2" /> <id nullFlavor="NA" /> <code codeSystem="local" code="USPG" displayName= "Specific Orchard" /> <statusCode code="completed" /> < effectiveTime value="" /> <value unit="NA" xsi:type="PQ" value="1.020" /> <referenceRange> <observationRange> <text>1.003-1.030</text> </observationRange> </ referenceRange> </observation> </component> <component> <observation moodCode="EVN" classCode="OBS"> <templateId root= "16.840.1.260910.10..4.2" /> <id nullFlavor="NA" /> < code codeSystem="local" code="UTYP" displayName="UA Collection type" /> <statusCode code="completed" /> <effectiveTime value="919352441212" / > <value unit="NA" xsi:type="PQ" value="Clean Catch" /> < referenceRange> <observationRange> <text /> < /observationRange> </referenceRange> </observation> </ component> <component> <observation moodCode="EVN" classCode="OBS"> <templateId root="06.03.840.1.738099.02.04.22.4.2" /> <id nullFlavor="NA" /> <code codeSystem="local" code="UURO" displayName= "Urobilinogen" /> <statusCode code="completed" /> < effectiveTime value="713448183189" /> <value unit="mg/dL" xsi:type="PQ " value="Negative" /> <referenceRange> <observationRange> <text><1.0</text> </observationRange> </ referenceRange> </observation> </component> </organizer> </entry > <entry> <organizer moodCode="EVN" classCode="BATTERY"> <templateId root="16.840.1.936102.10..4.1" /> <id nullFlavor="NA" /> <code codeSystem="local" code="UMIC" displayName="Urine Microscopic" /> < statusCode code="completed" /> <component> <observation moodCode= "EVN" classCode="OBS"> <templateId root="06.03.840.1.413730.10.4.2 " /> <id nullFlavor="NA" /> <code codeSystem="local" code= "UBAC" displayName="Bacteria" /> <statusCode code="completed" /> <effectiveTime value="" /> <value unit="NA" xsi:type= "PQ" value="Rare" /> <referenceRange> <observationRange> <text /> </observationRange> </referenceRange> </observation> </component> <component> <observation moodCode="EVN" classCode="OBS"> <templateId root= "840.1.117272.02.04.22.4.2" /> <id nullFlavor="NA" /> < code codeSystem="local" code="UEPI" displayName="Epithelial Cells" /> < statusCode code="completed" /> <effectiveTime value="" /> <value unit="/HPF" xsi:type="PQ" value="0" /> <referenceRange > <observationRange> <text /> </ observationRange> </referenceRange> </observation> </ component> <component> <observation moodCode="EVN" classCode="OBS"> <templateId root="840.1.587301.10.4.2" /> <id nullFlavor="NA" /> <code codeSystem="local" code="URBC" displayName= "RBC, Urine" /> <statusCode code="completed" /> < effectiveTime value="" /> <value unit="/HPF" xsi:type="PQ" value="20" /> <interpretationCode codeSystem="local" code="*" /> <referenceRange> <observationRange> <text>0-2</text > </observationRange> </referenceRange> </observation > </component> <component> <observation moodCode="EVN" classCode="OBS"> <templateId root="216.840.1.919323.10.4.2" /> <id nullFlavor="NA" /> <code codeSystem="local" code="UMUC" displayName="Urine Mucus" /> <statusCode code="completed" /> < effectiveTime value="897577780875" /> <value unit="NA" xsi:type="PQ" value="Present" /> <referenceRange> <observationRange> <text /> </observationRange> </referenceRange> </observation> </component> <component> <observation moodCode="EVN" classCode="OBS"> <templateId root= "16.840.1.397643.02.04.22.4.2" /> <id nullFlavor="NA" /> < code codeSystem="local" code="UWBC" displayName="WBC, Urine" /> < statusCode code="completed" /> <effectiveTime value="310696427670" /> <value unit="/HPF" xsi:type="PQ" value="0" /> <referenceRange > <observationRange> <text>0-4</text> </ observationRange> </referenceRange> </observation> </ component> </organizer> </entry> <entry> <organizer moodCode="EVN" classCode="BATTERY"> <templateId root="16.840.1.132575.10..4.1" /> <id nullFlavor="NA" /> <code codeSystem="local" code="RH1" displayName ="RH Type" /> <statusCode code="completed" /> <component> < observation moodCode="EVN" classCode="OBS"> <templateId root= "06.03.840.1.389955.10..4.2" /> <id nullFlavor="NA" /> < code codeSystem="local" code="RH1" displayName="RH Type" /> < statusCode code="completed" /> <effectiveTime value="115459916783" /> <value unit="NA" xsi:type="PQ" value="" /> <referenceRange> <observationRange> <text /> </observationRange > </referenceRange> </observation> </component> </ organizer> </entry> <entry> <organizer moodCode="EVN" classCode="BATTERY"> <templateId root="06.03.840.1.844935.10..4.1" /> <id nullFlavor= "NA" /> <code codeSystem="local" code="HCGQ" displayName="HCG Quantitative " /> <statusCode code="completed" /> <component> <observation moodCode="EVN" classCode="OBS"> <templateId root= "06.03.840.1.482278.10..4.2" /> <id nullFlavor="NA" /> < code codeSystem="local" code="HCGQ" displayName="HCG Quantitative" /> < statusCode code="completed" /> <effectiveTime value="607606312924" /> <value unit="mIU/mL" xsi:type="PQ" value="75" /> < referenceRange> <observationRange> <text /> < /observationRange> </referenceRange> </observation> </ component> </organizer> </entry> <entry> <organizer moodCode="EVN" classCode="BATTERY"> <templateId root="06.03.840.1.841342.10..4.1" /> <id nullFlavor="NA" /> <code codeSystem="local" code="UC" displayName= "URINE CULTURE" /> <statusCode code="completed" /> <component> <observation moodCode="EVN" classCode="OBS"> <templateId root= "216.840.1.904688.10...4.2" /> <id nullFlavor="NA" /> < code codeSystem="local" code="MB" displayName="Microbiology" /> < statusCode code="completed" /> <effectiveTime value="222689058286" /> <value xsi:type="ST" value="<pre><b>URINE CULTURE</b> See BelowURINE CULTURE(F) Serene Date/Time: 07/12/2017 19:55 Marjan Date/Time: 07/14/2017 06:24SOURCE: URINESPEC DESC: CLEAN CATCHTREATMENT OF ASYMPTOMATIC BACTERIURIA IS NOT USUALLYCLINICALLY INDICATED.MIXED GRAM POSITIVE?[facility] [place] [address]</pre>" /> <referenceRange> <observationRange> <text /> </observationRange> </referenceRange> </observation> </component> </organizer > </entry> <entry> <organizer moodCode="EVN" classCode="BATTERY"> < templateId root="06.03.840.1.420209.10...4.1" /> <id nullFlavor="NA" /> <code codeSystem="local" code="UA" displayName="URINALYSIS, ROUTINE" /> <statusCode code="completed" /> <component> <observation moodCode="EVN" classCode="OBS"> <templateId root= "216.840.1.116081.10..22.4.2" /> <id nullFlavor="NA" /> < code codeSystem="local" code="SPGRU" displayName="UA SPECIFIC GRAVITY" /> <statusCode code="completed" /> <effectiveTime value="208491664196 " /> <value unit="" xsi:type="PQ" value="1.022" /> < referenceRange> <observationRange> <text>1.015-1.025</ text> </observationRange> </referenceRange> </ observation> </component> </organizer> </entry> <entry> <organizer moodCode="EVN" classCode="BATTERY"> <templateId root= "16.840.1.499206.10.22.4.1" /> <id nullFlavor="NA" /> <code codeSystem="local" code="UAMICRO" displayName="UA MICROSCOPIC" /> < statusCode code="completed" /> <component> <observation moodCode= "EVN" classCode="OBS"> <templateId root="16.840.1.131571.02.04.22.4.2 " /> <id nullFlavor="NA" /> <code codeSystem="local" code= "BACU" displayName="UA BACTERIA" /> <statusCode code="completed" /> <effectiveTime value="601939208016" /> <value unit="" xsi:type= "PQ" value="2+" /> <interpretationCode codeSystem="local" code="*" /> <referenceRange> <observationRange> <text> NEGATIVE</text> </observationRange> </referenceRange> </observation> </component> <component> <observation moodCode ="EVN" classCode="OBS"> <templateId root= "16.840.1.019487....4.2" /> <id nullFlavor="NA" /> < code codeSystem="local" code="EPIU" displayName="UA EPITHELIAL CELLS" /> <statusCode code="completed" /> <effectiveTime value="" /> <value unit="epi/hpf" xsi:type="PQ" value="3+" /> < interpretationCode codeSystem="local" code="*" /> <referenceRange> <observationRange> <text>0 - 1+</text> </ observationRange> </referenceRange> </observation> </ component> <component> <observation moodCode="EVN" classCode="OBS"> <templateId root="216.840.1.448837.10.22.4.2" /> <id nullFlavor="NA" /> <code codeSystem="local" code="RBCU" displayName=" UA RBC" /> <statusCode code="completed" /> <effectiveTime value="582887824835" /> <value unit="rbc/hpf" xsi:type="PQ" value= "PACKED FIELD" /> <interpretationCode codeSystem="local" code="*" /> <referenceRange> <observationRange> <text>0 - 3< /text> </observationRange> </referenceRange> </ observation> </component> <component> <observation moodCode= "EVN" classCode="OBS"> <templateId root="06.03.840.1.343289.02.04.22.4.2 " /> <id nullFlavor="NA" /> <code codeSystem="local" code= "UAVOL" displayName="UA VOLUME FOR EXAM" /> <statusCode code="completed " /> <effectiveTime value="620479643415" /> <value unit="mL" xsi:type="PQ" value="4.0" /> <referenceRange> < observationRange> <text>(12mL STD)</text> </ observationRange> </referenceRange> </observation> </ component> <component> <observation moodCode="EVN" classCode="OBS"> <templateId root="16.840.1.289666.02.04.22.4.2" /> <id nullFlavor="NA" /> <code codeSystem="local" code="WBCU" displayName=" UA WBC" /> <statusCode code="completed" /> <effectiveTime value="847249023025" /> <value unit="wbc/hpf" xsi:type="PQ" value="10- 20" /> <interpretationCode codeSystem="local" code="*" /> < referenceRange> <observationRange> <text>0 - 5</text> </observationRange> </referenceRange> </observation> </component> </organizer> </entry> <entry> <organizer moodCode="EVN " classCode="BATTERY"> <templateId root="216.840.1.459244.10...4.1" / > <id nullFlavor="NA" /> <code codeSystem="local" code="PREGU" displayName="UR TEST" /> <statusCode code="completed" /> < component> <observation moodCode="EVN" classCode="OBS"> < templateId root="216.840.1.265700.10...4.2" /> <id nullFlavor="NA " /> <code codeSystem="local" code="PREGU" displayName="UR TEST" /> <statusCode code="completed" /> <effectiveTime value= "234783680163" /> <value unit="" xsi:type="PQ" value="POSITIVE" /> <interpretationCode codeSystem="local" code="*" /> < referenceRange> <observationRange> <text>NEGATIVE</text > </observationRange> </referenceRange> </observation > </component> </organizer> </entry> <entry> <organizer moodCode= "EVN" classCode="BATTERY"> <templateId root="216.840.1.685128.104.1 " /> <id nullFlavor="NA" /> <code codeSystem="local" code="HCGQNT" displayName="HCG QUANT INTACT" /> <statusCode code="completed" /> < component> <observation moodCode="EVN" classCode="OBS"> < templateId root="840.1.224766.02.04.224.2" /> <id nullFlavor="NA " /> <code codeSystem="local" code="HCGQNT" displayName="HCG QUANT INTACT" /> <statusCode code="completed" /> <effectiveTime value="354630505563" /> <value unit="mIU/mL" xsi:type="PQ" value="51" / > <interpretationCode codeSystem="local" code="*" /> < referenceRange> <observationRange> <text /> < /observationRange> </referenceRange> </observation> </ component> </organizer> </entry> <entry> <organizer moodCode="EVN" classCode="BATTERY"> <templateId root="840.1.570841.02.04.224.1" /> <id nullFlavor="NA" /> <code codeSystem="local" code="HH" displayName= "HGB HCT" /> <statusCode code="completed" /> <component> < observation moodCode="EVN" classCode="OBS"> <templateId root= "840.1.831104.02.04.22.4.2" /> <id nullFlavor="NA" /> < code codeSystem="local" code="MCV" displayName="MEAN CELL VOLUME" /> < statusCode code="completed" /> <effectiveTime value="335851437632" /> <value unit="fl" xsi:type="PQ" value="74.9" /> < interpretationCode codeSystem="local" code="*" /> <referenceRange> <observationRange> <text>80.0-100.0</text> </ observationRange> </referenceRange> </observation> </ component> <component> <observation moodCode="EVN" classCode="OBS"> <templateId root="2.16.840.1.461401.10.20.22.4.2" /> <id nullFlavor="NA" /> <code codeSystem="local" code="HGBT" displayName= "HEMOGLOBIN" /> <statusCode code="completed" /> < effectiveTime value="404032505959" /> <value unit="gm/dL" xsi:type="PQ " value="9.9" /> <interpretationCode codeSystem="local" code="*" /> <referenceRange> <observationRange> <text>12.0- 16.0</text> </observationRange> </referenceRange> </ observation> </component> <component> <observation moodCode= "EVN" classCode="OBS"> <templateId root="[id number] " /> <id nullFlavor="NA" /> <code codeSystem="local" code= "HCTT" displayName="HEMATOCRIT" /> <statusCode code="completed" /> <effectiveTime value="[id number]" /> <value unit="%" xsi: type="PQ" value="33.4" /> <interpretationCode codeSystem="local" code= "*" /> <referenceRange> <observationRange> < text>37.0-47.0</text> </observationRange> </referenceRange> </observation> </component> </organizer> </entry></section> Encounters ACCT No. Visit Date/Time Discharge Status Pt. Type Provider Facility Loc./Unit Complaint [id number] 07/12/2017 19:23:00 07/12/2017 22:14:00 DIS Emergency Jorge Alberto GALVANAlex [facility] W.EDS [id number] 10/01/2013 15:03:00 10/01/2013 17:07:00 DIS Emergency Leroy Smith DO [facility] W.EDW [id number] 07/12/2017 08:55:00 07/12/2017 11:56:00 DIS Emergency Jimenez Jacob [facility] on [facility] ED Vaginal bleeding and abdominal pain, 5 wks [id number] 07/13/2017 05:19:01 Document Registration [id number] 06/03/2015 18:27:00 06/03/2015 23:59:00 [facility]UC[facility] BLOOD [id number] 07/21/2017 15:41:35 ACT Document Registration
[2018-07-14 22:13] LABS: CLARITY,URINE CLEAR; COLOR,URINE YELLOW; PH,URINE 6.5 (5-9); PROTEIN,URINE NEGATIVE (NEGATIVE)
[2018-07-14 22:14] LABS: BACTERIA,URINE FEW /HPF; BILIRUBIN,URINE NEGATIVE (NEGATIVE); GLUCOSE, URINE (UA) NEGATIVE (NEGATIVE); KETONES,URINE NEGATIVE (NEGATIVE); LEUKOCYTE ESTERASE ,URINE NEGATIVE (NEGATIVE); NITRITE,URINE NEGATIVE (NEGATIVE)
--- NOTE | 2018-07-14 22:46 | ED GU-Female ---
General Chief Complaint: [facility] Stated Complaint: LOW BACK PAIN, PT FOUND OUT , HR NEGATIVE Nursing Triage Note: Patient states she found out she was a few days ago and started having low back pain this evening. She has a hx of miscarriage and wanted to get checked out. States she is Rh- and will need rhogam injection if she is having a miscarriage. Nursing Sepsis Screen: No Definite Risk Source: patient Exam Limitations: no limitations History of Present Illness Date Seen by Provider: Jul 14, 2018 Time Seen by Provider: 21:45 Initial Comments Patient is a 18-year-old G2, P1, unknown gestational age with positive home urine test yesterday who presents with lower back pain, and pelvic cramping similar but less severe than menstrual period and denies bleeding. Patient has regular periods and does not recall the exact date of her last menstrual period but knows that it has been in the past 3 months. No urinary frequency urgency dysuria. No dizziness lightheadedness chest pain. Denies vaginal discharge or concern for possible STD. Patient did contact her PCP and has a follow-up appointment on Tuesday and referral to [facility] next week. She reports feeling anxious due previous miscarriage early in . No prior abdominal or pelvic surgeries. Timing/Duration: this morning, this afternoon Severity/Quality: mild Location: suprapubic Radiation: other (lower back) Prior Genitourinary Problems: none Associated Symptoms: No diaphoresis, No dysuria, No nausea/vomiting Allergies and Home Medications Patient Home Medication List Home Medication List Reviewed: Yes Review of Systems Review of Systems Constitutional: no symptoms reported EENTM: see HPI Respiratory: no symptoms reported, see HPI Cardiovascular: no symptoms reported, see HPI Gastrointestinal: see HPI Genitourinary: see HPI Musculoskeletal: see HPI Past Erywqzz-Pbqssm-Moltzf Hx Patient Social History Alcohol Use: Denies Use Recreational Drug Use: No Smoking Status: Never a Smoker 2nd Hand Smoke Exposure: No Recent Foreign Travel: No Contact w/Someone Who Travel: No Recent Infectious Disease Expo: No Recent Hopitalizations: No Physical Abuse: No Sexual Abuse: No Mistreated: No Fear: No Seasonal Allergies Seasonal Allergies: No Past Medical History Surgeries: No Respiratory: No Cardiac: No Neurological: No : Yes (Confirmed 2 days ago LMP unknown) Hx : 2 Hx Para: 0 Hx Total # of Abortions (Sp): 1 Sexually Transmitted Disease: No HIV/AIDS: No Genitourinary: No Gastrointestinal: No Musculoskeletal: No Endocrine: No HEENT: No Cancer: No Psychosocial: No Integumentary: No Blood Disorders: No Physical Exam Vital Signs Vital Signs - First Documented 07/14/18 22:01 Temp 99.5 Pulse 92 Resp 16 B/P (MAP) 134/60 (84) Pulse Ox 99 O2 Delivery Room Air Capillary Refill : Less Than 3 Seconds Height, Weight, BMI Height: 5'5.00" Weight: 151lbs. oz. 68.387528jg; BMI Method:Stated General Appearance: WD/WN, no apparent distress HEENT: PERRL/EOMI, normal ENT inspection Cardiovascular: normal peripheral pulses Respiratory: lungs clear, normal breath sounds Gastrointestinal: non tender Back: normal inspection Extremities: normal range of motion Progress/Results/Core Measures Suspected Sepsis Recent Fever Within 48 Hours: No Infection Criteria Present: None New/Unexplained Altered Menta: No Sepsis Screen: No Definite Risk SIRS Temperature:99.5 Pulse: 92 Respiratory Rate: 16 Laboratory Tests 07/14/18 23:08: White Blood Count 9.6 Blood Pressure 134 /60 Mean: 84 Laboratory Tests 07/14/18 23:08: Platelet Count 319 Results/Orders Lab Results Laboratory Tests Test 07/14/18 21:52 07/14/18 23:08 Range/Units Urine Color YELLOW Urine Clarity CLEAR Urine pH 6.5 5-9 Urine Specific Warren 1.015 L 1.016-1.022 Urine Protein NEGATIVE NEGATIVE Urine Glucose (UA) NEGATIVE NEGATIVE Urine Ketones NEGATIVE NEGATIVE Urine Nitrite NEGATIVE NEGATIVE Urine Bilirubin NEGATIVE NEGATIVE Urine Urobilinogen 1.0 NORMAL MG/DL Urine Leukocyte Esterase NEGATIVE NEGATIVE Urine RBC (Auto) NEGATIVE NEGATIVE Urine RBC NONE /HPF Urine WBC 2-5 /HPF Urine Squamous Epithelial Cells 10-25 H /HPF Urine Crystals NONE /LPF Urine Bacteria FEW H /HPF Urine Casts NONE /LPF Urine Mucus NEGATIVE /LPF Urine Culture Indicated NO Urine Test POSITIVE NEGATIVE White Blood Count 9.6 4.3-11.0 10^3/uL Red Blood Count 4.76 4.35-5.85 10^6/uL Hemoglobin 10.2 L 11.5-16.0 G/DL Hematocrit 34 L 35-52 % Mean Corpuscular Volume 71 L 80-99 FL Mean Corpuscular Hemoglobin 21 L 25-34 PG Mean Corpuscular Hemoglobin Concent 30 L 32-36 G/DL Red Cell Distribution Width 16.3 H 10.0-14.5 % Platelet Count 319 130-400 10^3/uL Mean Platelet Volume 11.5 H 7.4-10.4 FL Neutrophils (%) (Auto) 58 42-75 % Lymphocytes (%) (Auto) 31 12-44 % Monocytes (%) (Auto) 8 0-12 % Eosinophils (%) (Auto) 2 0-10 % Basophils (%) (Auto) 1 0-10 % Neutrophils # (Auto) 5.0 1.8-7.8 X 10^3 Lymphocytes # (Auto) 51.0 H 1.0-4.0 X 10^3 Monocytes # (Auto) 3.0 H 0.0-1.0 X 10^3 Eosinophils # (Auto) 0.8 H 0.0-0.3 10^3/uL Basophils # (Auto) 0.2 H 0.0-0.1 10^3/uL Human Chorionic Gonadotropin, Quant 105 H <5 MIU/ML My Orders Orders - MEGAN WHEATLEY DO Urinalysis (07/14/18 21:59) Hcg,Qualitative Urine (07/14/18 21:59) Cbc With Automated Diff (07/14/18 22:37) Hcg,Quantitative (07/14/18 22:37) RH (07/14/18 22:40) Vital Signs/I&O 07/14/18 22:01 Temp 99.5 Pulse 92 Resp 16 B/P (MAP) 134/60 (84) Pulse Ox 99 O2 Delivery Room Air Capillary Refill : Less Than 3 Seconds Blood Pressure Mean: 84 Departure Impression Primary Impression: Pelvic pain affecting in first trimester, antepartum Disposition: 07 AGAINST MEDICAL ADVICE Condition: Against Medical Advice Departure-Patient Inst. Decision time for Depature: 23:56 Referrals: NO,LOCAL PHYSICIAN (PCP) Primary Care Physician Add. Discharge Instructions: Please follow-up with your PCP or [facility] on Tuesday for repeat hCG testing. In the meantime if you change your mind regarding a pelvic exam, pelvic ultrasound , please return to the emergency department for a complete evaluation. All discharge instructions reviewed with patient and/or family. Voiced understanding. MEGAN WHEATLEY DO Jul 14, 2018 22:46
[2018-07-14 23:27] LABS: WHITE BLOOD COUNT 9.6 10^3/uL (4.3-11.0)
[2018-07-14 23:28] LABS: HEMATOCRIT 34 % (35-52); HEMOGLOBIN 10.2 G/DL (11.5-16.0); LYMPHOCYTES % (AUTO) 31 % (12-44); MEAN CORPUSCULAR HEMOGLOBIN 21 PG (25-34); MEAN CORPUSCULAR HGB CONC 30 G/DL (32-36); MEAN CORPUSCULAR VOLUME 71 FL (80-99); MEAN PLATELET VOLUME 11.5 FL (7.4-10.4); MONOCYTES % (AUTO) 8 % (0-12); NEUTROPHILS % (AUTO) 58 % (42-75); PLATELET COUNT 319 10^3/uL (130-400); RED CELL DISTRIBUTION WIDTH 16.3 % (10.0-14.5)
[2018-07-14 23:29] LABS: BASOPHILS # (AUTO) 0.2 10^3/uL (0.0-0.1); BASOPHILS % (AUTO) 1 % (0-10); EOSINOPHILS # (AUTO) 0.8 10^3/uL (0.0-0.3); EOSINOPHILS % (AUTO) 2 % (0-10)
[2018-07-15 00:01] VITALS: BP 127/64
== END 2018-07-15 00:01 | disposition left against medical advice (07) ==
LOC: EDUNIT# 21:30 → ER FS 21:32
DX: O26.891 Other specified pregnancy related conditions, first trimester (principal); R10.2 Pelvic and perineal pain; Z3A.00 Weeks of gestation of pregnancy not specified
CPT/HCPCS: 36415; 81000; 84702; 84703; 85025; 86901; 99282

== ENCOUNTER 2019-03-19 06:00 | Inpatient (IN) | payer MEDICAID ==
[2019-03-19] VITALS (84 sets, daily range): BP systolic 96–146; BP diastolic 49–108
[~2019-03-19] VITALS: Ht 172.7 cm; Wt 88.0 kg
--- NOTE | 2019-03-19 06:00 | NUR ---
CRISTINA REINA presented to unit via ambulation from home, accompanied by SO, for INDUCTION. CRISTINA REINA weighed, gowned, voided, and to bed. EFHM and TOCO applied, VS taken. CRISTINA REINA oriented to bed controls, call light, TV, heat, and A/C controls.
[2019-03-19] MEDS ORDERED: D5 LR IV SOLUTION 1,000 ML IV ONE (06:07)
[2019-03-19] MEDS ORDERED: OXYTOCIN/NORMAL SALINE 500 ML IV ONE ×2 (06:08→07:41)
[2019-03-19] MEDS ORDERED: MINERAL OIL CONCENTRATE 99.9% 15 ML UDC TOP PRN (06:15)
[2019-03-19] MEDS: D5 LR IV SOLUTION 1,000 ML IV SCH ×3 (06:25→21:57)
[2019-03-19] MEDS ORDERED: SUFENTA 0.6MCG/ML BUPIVA 0.125 100 ML ONE (07:12)
--- NOTE | 2019-03-19 07:24 | History & Physical-OB/GYN ---
History of Present Illness History of Present Illness Reason for visit/HPI Ms. Johansen at 39 1/7 weeks presents to the hospital for Pitocin Induction of Labor Date of Admission Mar 19, 2019 at 06:05 Date Seen by a Provider: Mar 19, 2019 Time Seen by a Provider: 06:55 I consulted on this patient on 03/19/19 07:19 Attending Physician Robert López DO Admitting Physician Robert López DO Consult Allergies and Home Medications Allergies Coded Allergies: No Known Drug Allergies (Unverified , 03/19/19) Patient Home Medication List Home Medication List Reviewed: Yes Past Fhxbswu-Vmyxgd-Ezcgny Hx Patient Social History Marrital Status: single Number of Children: 0 Number of living children: 0 Alcohol Use: Denies Use Recreational Drug Use: No Smoking Status: Never a Smoker 2nd Hand Smoke Exposure: No Physical Abuse Screen: No Sexual Abuse: No Recent Foreign Travel: Yes Contact w/other who traveled: No Recent Hopitalizations: No Recent Infectious Disease Expo: No Seasonal Allergies Seasonal Allergies: No Surgeries No Respiratory No Cardiovascular No Neurological No Reproductive System Expected Date of Delivery: Mar 23, 2019 Sexually Transmitted Disease: No HIV/AIDS: No Genitourinary No Gastrointestinal No Musculoskeletal No Endocrine History of Endocrine Disorders: No HEENT History of HEENT Disorders: No Cancer No Psychosocial History of Psychiatric Problem: No Integumentary History of Skin or Integumenta: No Blood Transfusions History of Blood Disorders: No Review of Systems Constitutional: see HPI Physical Exam Physical Exam Vital Signs Capillary Refill : General Appearance: No Apparent Distress, WD/WN Respiratory: Chest Non Tender, Lungs Clear Cardiovascular: Regular Rate, Rhythm, No Murmur Abdominal: normal bowel sounds Labia: WNL Vagina: WNL Cervix: WNL (Closed) Cervix Mass: firm Cervix OS: closed Pelvic Exam: normal external exam Extremity: Normal Capillary Refill Assessment/Plan Assessment and Plan Assessment: Intrauterine at 39 1/7 weeks Plan: Pitocin Induction of Labor. Once dilated, I will artificially rupture her membranes. Epidural Anesthesia. Then, I expect a normal spontaneous vaginal delivery Admission Diagnosis Admission Status: Inpatient Order (span 2 midnights) Reason for Inpatient Admission: Pitocin Induction of Labor at 39 1/7 weeks Clinical Quality Measures DVT/VTE Risk/Contraindication: Risk Factor Score Per Nursin RFS Level Per Nursing on Admit: 1=Low/No VTE PPX SEALS,ROBERT E DO Mar 19, 2019 07:24 POS
[2019-03-19] MEDS ORDERED: OXYTOCIN/NORMAL SALINE 500 ML IV SCH (07:38)
[2019-03-19] MEDS ORDERED: fentaNYL INJECTION 100 MCG/2 ML AMP ONE (08:25)
[2019-03-19] MEDS: EPIDURAL (SUFENTA 0.6MCG/ML BUPIVA 0.125%) 100 ML BAG EPI PRN (08:30)
[2019-03-19] MEDS ORDERED: LACTATED RINGERS 1,000 ML IV ONE (08:38)
[2019-03-19 08:44] LABS: BASOPHILS % (AUTO) 0 % (0-10); EOSINOPHILS # (AUTO) 0.1 10^3/uL (0.0-0.3); EOSINOPHILS % (AUTO) 1 % (0-10); HEMATOCRIT 28 % (35-52); HEMOGLOBIN 8.5 G/DL (11.5-16.0); LYMPHOCYTES # (AUTO) 2.4 X 10^3 (1.0-4.0); LYMPHOCYTES % (AUTO) 21 % (12-44); MEAN CORPUSCULAR HEMOGLOBIN 21 PG (25-34); MEAN CORPUSCULAR HGB CONC 31 G/DL (32-36); MEAN CORPUSCULAR VOLUME 68 FL (80-99); MEAN PLATELET VOLUME 12.1 FL (7.4-10.4); MONOCYTES % (AUTO) 9 % (0-12); NEUTROPHILS % (AUTO) 69 % (42-75); PLATELET COUNT 297 10^3/uL (130-400); RED CELL DISTRIBUTION WIDTH 16.5 % (10.0-14.5); WHITE BLOOD COUNT 11.6 10^3/uL (4.3-11.0)
[2019-03-19] MEDS ORDERED: ONDANSETRON 4 MG/2 ML (SDV) Z0FRAN IV PRN (08:45)
[2019-03-19] MEDS ORDERED: METOCLOPRAMIDE INJ 10 MG/2 ML (REGLAN) IV PRN (08:45)
[2019-03-19] MEDS ORDERED: NALOXONE 0.4 MG/ML 1 ML (NARCAN) VIAL IV PRN ×2 (08:45)
[2019-03-19] MEDS ORDERED: diphenhydrAMINE 50 MG/ML INJ (BENADRYL) IV PRN (08:45)
[2019-03-19] MEDS: CATHETER FLUSH 10 ML SYR IV SCH (22:00)
[2019-03-20] VITALS (23 sets, daily range): BP systolic 107–149; BP diastolic 53–102
[2019-03-20] MEDS: EPIDURAL (SUFENTA 0.6MCG/ML BUPIVA 0.125%) 100 ML BAG EPI PRN (00:35)
[2019-03-20] MEDS ORDERED: ACETAMINOPHEN 650 MG SUPP (TYLENOL) PR ONE (02:00)
[2019-03-20] MEDS ORDERED: LIDOCAINE 1% INJ 20 ML 20 ML VIAL ONE (02:05)
[2019-03-20] MEDS: OXYTOCIN/NORMAL SALINE 500 ML IV SCH ×2 (02:57→03:34)
--- NOTE | 2019-03-20 03:26 | OB Labor & Delivery Record ---
Vag Delivery Note Vag Delivery Note Date of Delivery: 03/20/19 Preoperative Diagnosis: Chen Johansen is a (18 /Para / ,Gestational Age (wks)39with [] Postoperative Diagnosis: Same Surgeon: BALDEMAR CÁRDENAS Director Of Grants: [None] Anesthesia: [Epidural and Pudendal Block] Delivery Type: [Normal Spontaneous Vaginal Delivery with Midline Episiotomy and Repair] Findings: [] Viable [Male] , apgars [], weight [7 lb 8 oz] Lacerations: Midline Episiotomy with Standard Repair Intact placenta with 3 vessel cord. No nuchal cord, body cord or shoulder dystocia Estimated Blood Loss: [300] ml Complications: None Condition: Stable Description of Procedure: The patient is a 18 year old female who presented [for Pitocin Induction of Labor]. She was admitted and informed consent was obtained. Her labor course was remarkable for [ tachycardia at the end of the laboring process (maternal temperature 100)] She progressed to complete dilatation and began to push. She was then set up for delivery. The infant's head was delivered atraumatically in the [JUNI] position. The shoulders and remainder of the infant's body were then delivered without difficulty. Upon delivery, the head was held below the level of the perineum and the mouth and nares were bulb suctioned. The cord was doubly clamped and cut and the was handed off to the pediatric staff. An intact placenta with 3-vessel cord delivered via Kareen and there was found to be minimal bleeding.~ Vigorous fundal massage was performed and the fundus was found to be firm. IV oxytocin was given. Examination of the vagina and perineum revealed normal episiotomy with extension, which was repaired in the usual fashion with 2-0 and 3-0 vicryl suture. Following the repair, sponge, instrument and needle counts were correct. Mom and baby were both in stable condition in the labor suite. Vitals - Labs Vital Signs - I&O Vital Signs Date Time Temp Pulse Resp B/P (MAP) Pulse Ox O2 Delivery O2 Flow Rate FiO2 03/20/19 00:30 37.0 134 16 131/102 (112) Room Air 03/20/19 00:15 121 16 128/80 (96) Room Air 03/20/19 00:00 100 16 120/67 (84) Room Air 03/19/19 23:45 36.7 105 16 127/72 (90) Room Air 03/19/19 23:30 106 16 118/72 (87) Room Air 03/19/19 23:15 96 16 134/62 (86) Room Air 03/19/19 23:00 36.6 99 16 124/67 (86) Room Air 03/19/19 22:45 117 16 111/61 (78) Room Air 03/19/19 22:30 102 16 133/71 (91) Room Air 03/19/19 22:15 100 16 128/76 (93) Room Air 03/19/19 22:00 36.9 102 16 130/71 (90) Room Air 03/19/19 21:45 102 16 130/74 (92) 98 Room Air 03/19/19 21:30 87 16 116/67 (83) 98 Room Air 03/19/19 21:15 99 16 115/67 (83) 98 Room Air 03/19/19 21:00 88 16 119/71 (87) 100 Room Air 03/19/19 20:45 36.4 86 16 132/66 (88) 100 Room Air 03/19/19 20:30 91 16 127/58 (81) 99 Room Air 03/19/19 20:15 85 16 122/57 (78) 98 Room Air 03/19/19 20:00 88 16 127/58 (81) 98 Room Air 03/19/19 19:45 84 16 113/67 (82) 98 Room Air 03/19/19 19:30 36.6 97 16 138/108 (118) 98 Room Air 03/19/19 19:15 89 16 124/65 (84) 99 Room Air 03/19/19 19:00 91 122/61 (81) 100 Room Air 03/19/19 18:45 37.0 89 121/67 (85) 99 Room Air 03/19/19 18:30 99 128/68 (88) 100 Room Air 03/19/19 18:30 92 18 127/68 (87) 100 Room Air 03/19/19 18:15 99 125/67 (86) 100 Room Air 03/19/19 18:00 99 128/68 (88) 100 Room Air 03/19/19 17:45 94 119/61 (80) 99 Room Air 12/2/19 17:30 109 99 Room Air 03/19/19 17:15 94 116/71 (86) 99 Room Air 03/19/19 17:00 93 16 121/60 (80) 99 Room Air 03/19/19 16:45 79 97/56 (70) 99 Room Air 03/19/19 16:30 116/66 (83) Room Air 03/19/19 16:15 95 131/66 (87) Room Air 03/19/19 16:00 37.1 95 121/59 (79) 99 Room Air 03/19/19 15:45 79 117/69 (85) Room Air 03/19/19 15:30 80 114/81 (92) Room Air 03/19/19 15:15 77 117/69 (85) Room Air 03/19/19 15:00 75 112/60 (77) 99 Room Air 03/19/19 14:45 86 16 116/60 (78) 98 Room Air 03/19/19 14:30 83 119/66 (83) 100 Room Air 03/19/19 14:15 85 118/57 (77) 99 Room Air 03/19/19 14:00 36.9 91 131/80 (97) 99 Room Air 03/19/19 13:45 88 120/75 (90) 99 Room Air 03/19/19 13:30 98 109/66 (80) 99 Room Air 03/19/19 13:15 81 124/60 (81) 98 Room Air 03/19/19 13:00 103 122/58 (79) 99 Room Air 03/19/19 12:45 91 98/49 (65) 100 Room Air 03/19/19 12:30 98 100/59 (73) 98 Room Air 03/19/19 12:15 83 96/51 (66) 99 Room Air 03/19/19 12:00 86 16 98/55 (69) 99 Room Air 03/19/19 11:45 76 114/59 (77) 98 Room Air 03/19/19 11:30 77 116/59 (78) 99 Room Air 03/19/19 11:15 76 117/62 (80) 99 Room Air 03/19/19 11:00 81 119/68 (85) 98 Room Air 03/19/19 10:45 71 125/64 (84) 98 Room Air 03/19/19 10:30 36.9 77 122/56 (78) 99 Room Air 03/19/19 10:15 88 122/67 (85) 99 Room Air 03/19/19 10:00 82 115/59 (77) 99 Room Air 03/19/19 09:45 82 115/59 (77) 99 Room Air 03/19/19 09:30 101 16 115/59 (77) 95 Room Air 03/19/19 09:10 87 133/67 (89) 03/19/19 09:06 91 131/72 (91) 98 03/19/19 09:03 86 122/57 (78) 98 03/19/19 09:00 98 120/68 (85) 98 03/19/19 08:56 88 146/63 (90) 99 03/19/19 08:53 104 128/63 (84) 03/19/19 08:50 94 123/73 (90) 99 03/19/19 08:48 100 132/80 (97) 99 03/19/19 08:45 36.7 89 18 129/76 (93) 99 Room Air 03/19/19 08:43 95 126/67 (86) 99 03/19/19 08:40 91 123/71 (88) 03/19/19 08:37 96 128/74 (92) 99 03/19/19 08:33 36.7 95 124/62 (82) 100 03/19/19 08:30 118 117/66 (83) 100 03/19/19 08:29 90 119/72 (88) 100 03/19/19 08:28 99 117/66 (83) 100 03/19/19 08:23 91 116/70 (85) 99 03/19/19 08:22 88 113/64 (80) 100 03/19/19 08:21 93 121/69 (86) 99 03/19/19 08:18 90 18 118/68 (85) 99 03/19/19 08:15 89 118/68 (85) 100 03/19/19 08:12 86 118/68 (85) 100 Room Air 03/19/19 08:06 91 125/73 (90) 100 Room Air 03/19/19 08:00 88 18 132/62 (85) 100 03/19/19 07:45 77 118/64 (82) 100 03/19/19 07:30 36.9 88 18 119/67 (84) 100 Room Air 03/19/19 06:06 36.3 85 18 100 Room Air I & O 03/20/19 07:00 Intake Total 3000 ml Output Total 1000 ml Balance 2000 ml Labs Laboratory Tests 03/19/19 06:20: White Blood Count 11.6H, Red Blood Count 4.12L, Hemoglobin 8.5L, Hematocrit 28L, Mean Corpuscular Volume 68L, Mean Corpuscular Hemoglobin 21L, Mean Corpuscular Hemoglobin Concent 31L, Red Cell Distribution Width 16.5H, Platelet Count 297, Mean Platelet Volume 12.1H, Neutrophils (%) (Auto) 69, Lymphocytes (%) (Auto) 21, Monocytes (%) (Auto) 9, Eosinophils (%) (Auto) 1, Basophils (%) (Auto) 0, Neutrophils # (Auto) 8.0H, Lymphocytes # (Auto) 2.4, Monocytes # (Auto) 1.0, Eosinophils # (Auto) 0.1, Basophils # (Auto) 0.0 BALDEMAR CÁRDENAS DO Mar 20, 2019 03:26 POS
[2019-03-20] MEDS ORDERED: WITCH HAZEL(TUCKS) 40 EA JAR TOP PRN (03:30)
[2019-03-20] MEDS ORDERED: BENZOCAINE/MENTHOL (DERMOPLAST) 56 ML CAN TP PRN (03:30)
[2019-03-20] MEDS ORDERED: MEASLES,MUMPS,RUBELLA 1 EA INJ SQ ONE (03:30)
[2019-03-20] MEDS ORDERED: TETANUS,DIPTH,PERTUSS P/F (BOOSTRIX) 0.5 ML VIAL IM ONE (03:30)
[2019-03-20] MEDS ORDERED: DIBUCAINE (NUPERCAINAL) 1% OINT 30 GM TOP PRN (03:30)
[2019-03-20] MEDS: IBUPROFEN 800 MG (MOTRIN) TAB PO SCH ×3 (04:35→20:17)
[2019-03-20] MEDS ORDERED: LIDOCAINE 1% INJ 20 ML 20 ML VIAL INJ ONE (04:45)
--- NOTE | 2019-03-20 05:15 | NUR ---
Pt. ambulated to bathroom without difficulty with standby assist. Positive void noted. Pericare performed. Light rubra bleeding, no clots.
--- NOTE | 2019-03-20 05:30 | NUR ---
Patient transferred to PP room 309 via wheelchair, accompanied by infant and S.O. Patient oriented to room, call light, and thermostat. PP folder provided and explained. Fresh ice water provided. No questions or concerns voiced at this time.
[2019-03-20] MEDS ORDERED: CATHETER FLUSH 10 ML SYR IV SCH (06:00)
[2019-03-20] MEDS: CATHETER FLUSH 10 ML SYR IV SCH (06:18)
--- NOTE | 2019-03-20 06:43 | Progress Note ---
Standard Progress Note Progress Notes/Assess & Plan Date Seen by a Provider: Mar 20, 2019 Time Seen by a Provider: 06:35 Progress/Assessment & Plan Subjective: Ms. Johansen is PPD#0 from a . She admits that the bleeding is still heavy, but slowing. Also, her pain is controlled with orals. Objective: Vital signs are stable Heart: Regular rate and rhythm without appreciable murmur Lungs: Clear to auscultation bilaterally with good respiratory effort Abdomen: Good bowel sounds, no rebound or guarding, fundus 4 cm below umbilicus Extremities: No cyanosis or clubbing Assessment: PPD#0 Plan: care and pain management Final Diagnosis Intrauterine at 39 1/7 weeks--delivered BALDEMAR CÁRDENAS DO Mar 20, 2019 06:43 POS
[2019-03-20] MEDS ORDERED: PRENATAL VITAMIN 1 EA TAB PO SCH (07:00)
[2019-03-20] MEDS: ACETAMINOPHEN 500 MG TAB (TYLENOL) PO SCH ×2 (07:02→18:22)
--- NOTE | 2019-03-20 08:41 | Anesthesia-Regional Post-Op ---
Regional Patient Condition Mental Status: Alert, Oriented x3 Circulation: Same as Pre-Op Headache: Absent Sensation: Full Recovery Motor Block: Absent Post Op Complications Complications None Follow Up Care/Instructions Patient Instructions None needed. Anesthesia/Patient Condition Patient is doing well, no complaints, stable vital signs, no apparent adverse anesthesia problems. No complications reported per nursing. D/C home per [facility] [place] Criteria: JEANCARLOS Sandoval CRNA Mar 20, 2019 08:41 POS
[2019-03-20] MEDS: DOCUSATE SODIUM 100 MG (COLACE) CAP PO SCH ×2 (11:25→20:17)
[2019-03-21 00:40] VITALS: BP 120/64
[2019-03-21] MEDS: ACETAMINOPHEN 500 MG TAB (TYLENOL) PO SCH ×2 (00:44→06:31)
[2019-03-21] MEDS: IBUPROFEN 800 MG (MOTRIN) TAB PO SCH (04:17)
[2019-03-21] MEDS ORDERED: ACET-77 PO (05:48)
[2019-03-21] MEDS ORDERED: IBUP-1780 PO (05:48)
[2019-03-21] MEDS ORDERED: OXC5T PO (05:48)
[2019-03-21] MEDS ORDERED: DOCU100C37 PO (05:48)
--- NOTE | 2019-03-21 05:54 | Discharge Summary ---
Diagnosis/Chief Complaint Date of Admission Mar 19, 2019 at 06:05 Date of Discharge March 21, 2019 Discharge Date: Mar 21, 2019 Discharge Time: 05:45 Admission Diagnosis Admission Diagnosis Intrauterine at 39 1/7 weeks Discharge Diagnosis Intrauterine at 39 1/7 weeks--delivered Reason Hospital Visit Ms. Johansen at 39 1/7 weeks presents to the hospital for Pitocin Induction of Labor Discharge Summary Hospital Course Was the Problem List Reviewed?: Yes Hospital Course Ms. Johansen was admitted for scheduled Pitocin Induction of Labor. I artificially ruptured her membranes. She received an epidural for antepartum pain ernesto trudy. She progressed to complete, then delivered a healthy viable . The remainder of her hospitalization was unremarkable. Her vital signs remained stable throughout her hospitalization. We will discharge her to home with instructions, prescriptions, and a follow up appointment. Labs Laboratory Tests 03/19/19 06:20: White Blood Count 11.6H, Red Blood Count 4.12L, Hemoglobin 8.5L, Hematocrit 28L, Mean Corpuscular Volume 68L, Mean Corpuscular Hemoglobin 21L, Mean Corpuscular Hemoglobin Concent 31L, Red Cell Distribution Width 16.5H, Mean Platelet Volume 12.1H, Neutrophils # (Auto) 8.0H Procedures None. Discharge Physical Examination Allergies: Coded Allergies: No Known Drug Allergies (Unverified , 03/19/19) Vitals & I&Os Vital Signs Date Time Temp Pulse Resp B/P (MAP) Pulse Ox O2 Delivery O2 Flow Rate FiO2 03/21/19 00:40 36.3 100 18 120/64 (82) 99 Room Air General Appearance: Alert, Oriented X3, Cooperative HEENT: Atraumatic Respiratory: Clear to Auscultation, Normal Air Movement Cardiovascular: Regular Rate, No Murmurs Abdominal: Normal Bowel Sounds, No Tenderness Extremities: No Clubbing, No Cyanosis Skin: No Rashes Neuro: Normal Gait, Normal Speech Psych/Mental Status: Mental Status NL Discharge Home Medications Reviewed and agree with Discharge Medication list on patient's Discharge Instruction sheet Instructions to Patient/Family Please see electronic discharge instructions given to patient. Clinical Quality Measures DVT/VTE Risk/Contraindication: Risk Factor Score Per Nursin RFS Level Per Nursing on Admit: 1=Low/No VTE PPX BALDEMAR CÁRDENAS DO Mar 21, 2019 05:54 POS
[2019-03-21 05:58] LABS: BASOPHILS % (AUTO) 0 % (0-10); EOSINOPHILS # (AUTO) 0.2 10^3/uL (0.0-0.3); EOSINOPHILS % (AUTO) 1 % (0-10); HEMATOCRIT 21 % (35-52); LYMPHOCYTES # (AUTO) 2.7 X 10^3 (1.0-4.0); LYMPHOCYTES % (AUTO) 18 % (12-44); MEAN CORPUSCULAR HEMOGLOBIN 21 PG (25-34); MEAN CORPUSCULAR HGB CONC 30 G/DL (32-36); MEAN CORPUSCULAR VOLUME 70 FL (80-99); MEAN PLATELET VOLUME 12.2 FL (7.4-10.4); MONOCYTES # (AUTO) 0.8 X 10^3 (0.0-1.0); MONOCYTES % (AUTO) 5 % (0-12); NEUTROPHILS # (AUTO) 10.9 X 10^3 (1.8-7.8); NEUTROPHILS % (AUTO) 75 % (42-75); PLATELET COUNT 221 10^3/uL (130-400); RED CELL DISTRIBUTION WIDTH 16.2 % (10.0-14.5); WHITE BLOOD COUNT 14.5 10^3/uL (4.3-11.0)
[2019-03-21 06:04] LABS: HEMOGLOBIN 6.1 G/DL (11.5-16.0)
[2019-03-21 06:30] VITALS: BP 119/63
--- OUTSIDE RECORDS SUMMARY | 2019-04-12 15:42 | XMS REPORT | Continuity of Care Document ---
Author Organization Unknown Address Unknown Phone Unavailable Allergies Active Description Code Type Severity Reaction Onset Reported/Identified Relationship to Patient Clinical Status Yes No Known Allergies No Known Allergies Drug Allergy Unknown N/A 10/01/2013 Yes No Known Drug Allergies [id number] Drug Allergy Unknown N/A 03/19/2019 Medications There is no data. Problems Date Dx Coded Attending Type Code Diagnosis Diagnosed By 07/15/2018 MEGAN WHEATLEY DO, Ot O26.891 OT RELATED CONDITIONS, FIRST 07/15/2018 MEGAN WHEATLEY DO Ot R10.2 PELVIC AND PERINEAL PAIN 07/15/2018 MEGAN WHEATLEY DO Ot Z3A.00 WEEKS OF GESTATION OF NOT SPEC 07/20/2018 MEGAN WHEATLEY DO, Ot O26.891 OT RELATED CONDITIONS, FIRST 07/20/2018 MEGAN WHEATLEY DO Ot R10.2 PELVIC AND PERINEAL PAIN 07/20/2018 MEGAN WHEATLEY DO Ot Z3A.00 WEEKS OF GESTATION OF NOT SPEC 09/14/2018 SEALAngelique GALVAN BALDEMAR E Ot Z34.8 1 ENCOUNTER FOR SUPRVSN OF NORMAL PREGNANC 03/21/2019 JACKELIN CÁRDENAS DORY E Ot O76 ABNLT IN HEART RATE AND RHYTHM COM 03/21/2019 JACKELIN CÁRDENAS DORY E Ot Z37.0 SINGLE LIVE 03/21/2019 SEALJACKELIN Merino DORY E Ot Z3A.3 9 39 WEEKS GESTATION OF 03/21/2019 MCINTYRE DO, DAPHNIE L Ot O12.0 5 GESTATIONAL EDEMA, COMPLICATING THE PUER 03/21/2019 SEALS DO BALDEMAR E Ot Z34.8 1 ENCOUNTER FOR SUPRVSN OF NORMAL PREGNANC 03/26/2019 MCINTYRE DO, DAPHNIE L Ot O12.0 5 GESTATIONAL EDEMA, COMPLICATING THE PUER Procedures Code Description Performed By Per radha On 9P569IN IN TRODUCTION OF OTH HORMONE INTO PERIPH 03/19/2019 [id number] DI VISION OF FEMALE PERINEUM, EXTERNAL AP 03/20/2019 03Y0GRS DE LIVERY OF PRODUCTS OF CONCEPTION, EXTE 03/20/2019 Results Test Result Range UR TEST - 10/01/13 15:40 UR TEST NEGATIVE NEGATIVE URINALYSIS, ROUTINE - 10/01/13 15:40 UA LEUKOCYTE ESTERASE DIPSTICK TRACE NEGATIVE UA NITRITE DIPSTICK NEGATIVE NEGATIVE UA PROTEIN DIPSTICK TRACE NEGATIVE UA GLUCOSE DIPSTICK NEGATIVE NEGATIVE UA KETONE DIPSTICK NEGATIVE NEGATIVE UA UROBILINOGEN DIPSTICK NORMAL SANDOVAL L UA BILIRUBIN DIPSTICK NEGATIVE NEGATIVE UA BLOOD DIPSTICK NEGATIVE NEGATIVE UA SPECIFIC GRAVITY 1.015 1.015-1.02 5 UR PH 5.0 5.0-7.0 UA MICROSCOPIC - 10/01/13 15:40 UA BACTERIA 1+ NEGATIVE UA EPITHELIAL CELLS 2+ epi/hpf 0 - 1+ UA MUCUS 3+ NEG TO 1+ UA RBC 0-3 rbc/hpf 0 - 3 UA VOLUME FOR EXAM 12.0 mL (12mL STD) UA WBC 2-5 wbc/hpf 0 - 5 GLUCOSE (POC) - 10/01/13 15:58 GLUCOSE (POC) 107 mg/dL 70-99 CBC W/DIFF - 10/01/13 16:00 BASOPHIL # 0.1 k/cumm 0.0-0.2 BASOPHIL % 1 % 0-1 EOSINOPHIL # 0.2 k/cumm 0.1-0.5 EOSINOPHIL % 2 % 2-4 GRANULOCYTE # 7.6 k/cumm 2.0-9.0 GRANULOCYTE % 68 % 50-75 LYMPHOCYTE # 2.3 k/cumm 1.0-4.0 LYMPHOCYTE % 21 % 20-30 MEAN CELL HGB 24.4 pg 27.0-33.0 MEAN CELL HGB CONCENTRATION 32.4 g/dL 32 .0-37.0 MEAN CELL VOLUME 75.4 fl 79.0-95.0 MONOCYTE # 0.9 k/cumm 0.1-1.0 MONOCYTE % 8 % 4-6 RED BLOOD CELL 4.51 m/cumm 4.00-6.00 RED CELL DISTRIBUTION WIDTH 15.4 % 11 .0-15.6 WHITE BLOOD CELL 11.0 k/cumm 5.0-10.0 HEMOGLOBIN 11.0 gm/dL 12.0-16.0 HEMATOCRIT 34.0 % 36.0-46.0 PLATELET COUNT 303 k/cumm 150-450 METABOLIC PANEL, BASIC - 10/01/13 16:00 POTASSIUM 4.5 mmol/L 3.5-5.3 ANION GAP 12 mmol/L 5-15 GLUCOSE 105 mg/dL 70-99 CALCIUM 9.3 mg/dL 8.5-10.1 BLOOD UREA NITROGEN 8 mg/dL 7-20 CREATININE 0.6 mg/dL 0.5-1.0 SODIUM 144 mmol/L 135-148 CHLORIDE 106 mmol/L 98-110 CARBON DIOXIDE 26 mmol/L 21-32 URINE CULTURE - 07/12/17 19:55 Microbiology URINALYSIS, ROUTINE - 07/12/17 19:55 UA SPECIFIC GRAVITY 1.022 1.015-1.02 5 UA MICROSCOPIC - 07/12/17 19:55 UA BACTERIA 2+ NEGATIVE UA EPITHELIAL CELLS 3+ epi/hpf 0 - 1+ UA RBC PACKED FIELD rbc/hpf 0 - 3 UA VOLUME FOR EXAM 4.0 mL (12mL STD) UA WBC 10-20 wbc/hpf 0 - 5 UR TEST - 07/12/17 19:55 UR TEST POSITIVE NEGATIVE HCG QUANT INTACT - 07/12/17 19:56 HCG QUANT INTACT 51 mIU/mL HGB HCT - 07/12/17 19:56 MEAN CELL VOLUME 74.9 fl 80.0-100.0 HEMOGLOBIN 9.9 gm/dL 12.0-16.0 HEMATOCRIT 33.4 % 37.0-47.0 Complete urinalysis with reflex to cultu re - 07/14/18 21:52 Urine color determination YELLOW NRG Urine clarity determination CLEAR NR G Urine pH measurement by test strip 6.5 5-9 Specific gravity of urine by test strip 1.015 1.016-1.022 Urine protein assay by test strip, semi-quantitative NEGATIVE NEGATIVE Urine glucose detection by automated test strip NE GATIVE NEGATIVE Erythrocytes detection in urine sediment by light micr oscopy NEGATIVE NEGATIVE Urine ketones detection by automated test strip NE GATIVE NEGATIVE Urine nitrite detection by test strip NEGATIVE NEGATIVE Urine total bilirubin detection by test strip NEGA TIVE NEGATIVE Urine urobilinogen measurement by automated test strip (mass/volume) 1.0 mg/dL NORMAL Urine leukocyte esterase detection by dipstick NEG ATIVE NEGATIVE Automated urine sediment erythrocyte cou nt by microscopy (number/high power field) NONE NRG Automated urine sediment leukocyte count by microscopy (number/high power field) [HPF] NRG Bacteria detection in urine sediment by light microsco py FEW NRG Squamous epithelial cells detection in u rine sediment by light microscopy 10-25 NRG Crystals detection in urine sediment by light microsco py NONE NRG Casts detection in urine sediment by light microscopy NONE NRG Mucus detection in urine sediment by light microscopy NEGATIVE NRG Complete urinalysis with reflex to culture NO NRG Urine beta human chorionic gonadotropin (hCG) measurement - 07/14/18 21:52 Urine beta human chorionic gonadotropin (hCG) measurem ent POSITIVE NEGATIVE Complete blood count (CBC) with automate d white blood cell (WBC) differential - 07/14/18 23:08 Blood leukocytes automated count (number/volume) 9.6 10*3/uL 4.3-11.0 Blood erythrocytes automated count (number/volume) 4.76 10*6/uL 4.35-5.85 Venous blood hemoglobin measurement (mass/volume) 10.2 g/dL 11.5-16.0 Blood hematocrit (volume fraction) 34 % 35-52 Automated erythrocyte mean corpuscular volume 71 [ foz_us] 80-99 Automated erythrocyte mean corpuscular h emoglobin (mass per erythrocyte) 21 pg 25-34 Automated erythrocyte mean corpuscular h emoglobin concentration measurement (mass/volume) 30 g/dL 32-36 Automated erythrocyte distribution width ratio 16. 3 % 10.0- 14.5 Automated blood platelet count (count/volume) 319 10*3/uL 130-400 Automated blood platelet mean volume measurement 11.5 [foz_us] 7.4-10.4 Automated blood neutrophils/100 leukocytes 58 % 42-75 Automated blood lymphocytes/100 leukocytes 31 % 12-44 Blood monocytes/100 leukocytes 8 % 0-12 Automated blood eosinophils/100 leukocytes 2 % 0-10 Automated blood basophils/100 leukocytes 1 % 0-10 Blood neutrophils automated count (number/volume) 5.0 10*3 1.8-7.8 Blood lymphocytes automated count (number/volume) 51.0 10*3 1.0-4.0 Blood monocytes automated count (number/volume) 3. 0 10*3 0.0-1.0 Automated eosinophil count 0.8 10*3/uL 0 .0-0.3 Automated blood basophil count (count/volume) 0.2 10*3/uL 0.0-0.1 Serum or plasma choriogonadotropin measu rement (units/volume) - 07/14/18 23:08 Serum or plasma choriogonadotropin measurement (units/ volume) 105 m[iU]/mL <5 Rh - 07/14/18 23:08 Rh D AG - NEGATIVE NRG HSV 1/2 ANTIBODY IgM - 07/17/18 11:16 HSV 1 IGM SCREEN NEGATIVE NRG HSV 2 IGM SCREEN NEGATIVE NRG SUREPATH PAP RFX HPV mRNA E6/E7 - 11:16 CLINICAL INFORMATION: NRG LMP: NRG PREV. PAP: NRG PREV. BX: NRG SOURCE: [employer] NRG STATEMENT OF ADEQUACY: NRG INTERPRETATION/RESULT: NRG MEDICAL LAB SPECIALIST: NRG COMMENT NRG QUAD SCREEN - 10/09/18 11:02 Maternal Weight 152 lbs NRG Est'd Date of Delivery 03/23/2019 NRG LEIGHANN Determined by LMP NRG Mother's Ethnic Origin NRG Number of Fetuses 1 NRG Insulin Depend Diabetic NO NRG Repeat Specimen NO NRG Hx Of Neural Tube Defects NO NRG Prev Down Synd NO NRG Donor Egg NO NRG Donor Age: Egg Retrieval NOT GIVEN NRG INTERPRETATION: NRG Risk for ONTD <1 IN 5000 NRG Age Risk Down Syndrome 1 IN 1173 NRG PEDRO Down Syndrome Risk <1 IN 5000 NRG PEDRO Trisomy 18 Risk <1 IN 5000 NRG AFP, Serum 21.2 ng/mL NRG AFP MoM 0.62 NRG Estriol, Free 0.61 ng/mL NRG Estriol MoM 0.72 NRG hCG, Serum 23.14 IU/mL NRG hCG MoM 0.74 NRG Inhibin A, Dimeric 145 pg/mL NRG Inhibin A MoM 0.87 NRG COMMENTS: NRG COMMENT NRG Calc'd Gestational Age 16.4 weeks NRG Cigarette smoker NOT GIVEN NRG GLUCOSE FRANCIS 1 HOUR - 01/16/19 14:10 GLUCOSE, POSTPRANDIAL/ 1 HOUR 76 mg/dL See Note: CBC w/MANUAL DIFF - 01/16/19 14:10 WHITE BLOOD CELL COUNT 12.2 Thousand/uL 3.8-10.8 RED BLOOD CELL COUNT 4.30 Million/uL 3.8 0-5.10 HEMOGLOBIN 9.9 g/dL 11.7-15.5 HEMATOCRIT 32.0 % 35.0-45.0 MCV 74.4 fL 80.0-100.0 MCH 23.0 pg 27.0-33.0 MCHC 30.9 g/dL 32.0-36.0 RDW 14.4 % 11.0-15.0 PLATELET COUNT 309 Thousand/uL 140-400 MPV 11.1 fL 7.5-12.5 ABSOLUTE NEUTROPHILS 9150 cells/uL 1500- 7800 ABSOLUTE MONOCYTES 610 cells/uL 200-950 ABSOLUTE EOSINOPHILS 0 cells/uL 15-500 ABSOLUTE BASOPHILS 0 cells/uL 0-200 NEUTROPHILS 75.0 % NRG LYMPHOCYTES 14.0 % NRG MONOCYTES 5.0 % NRG EOSINOPHILS 0 % NRG BASOPHILS 0 % NRG ABSOLUTE BAND NEUTROPHILS 610 cells/uL 0 -750 ABSOLUTE METAMYELOCYTES 122 cells/uL ABSOLUTE LYMPHOCYTES 1708 cells/uL 850-3 900 BAND NEUTROPHILS 5.0 % NRG METAMYELOCYTES 1.0 % NRG PLATELET ESTIMATION ADEQUATE ADEQUATE CBC MORPHOLOGY NORMAL SYPHILIS (RPR W/ REFLEX CONFIRMATION) - 01/16/19 14:10 RPR (DX) W/REFL TITER AND CONFIRMATORY TESTING NON-REACTIVE NON-REACTIVE CULTURE, GROUP B STREP (VAGINAL) - 02/27 13:45 STREPTOCOCCUS, GROUP B CULTURE SEE NOTE NRG Complete blood count (CBC) with automate d white blood cell (WBC) differential - 03/19/19 06:20 Blood leukocytes automated count (number/volume) 11.6 10*3/uL 4.3-11.0 Blood erythrocytes automated count (number/volume) 4.12 10*6/uL 4.35-5.85 Venous blood hemoglobin measurement (mass/volume) 8.5 g/dL 11.5-16.0 Blood hematocrit (volume fraction) 28 % 35-52 Automated erythrocyte mean corpuscular volume 68 [ foz_us] 80-99 Automated erythrocyte mean corpuscular h emoglobin (mass per erythrocyte) 21 pg 25-34 Automated erythrocyte mean corpuscular h emoglobin concentration measurement (mass/volume) 31 g/dL 32-36 Automated erythrocyte distribution width ratio 16. 5 % 10.0- 14.5 Automated blood platelet count (count/volume) 297 10*3/uL 130-400 Automated blood platelet mean volume measurement 12.1 [foz_us] 7.4-10.4 Automated blood neutrophils/100 leukocytes 69 % 42-75 Automated blood lymphocytes/100 leukocytes 21 % 12-44 Blood monocytes/100 leukocytes 9 % 0-12 Automated blood eosinophils/100 leukocytes 1 % 0-10 Automated blood basophils/100 leukocytes 0 % 0-10 Blood neutrophils automated count (number/volume) 8.0 10*3 1.8-7.8 Blood lymphocytes automated count (number/volume) 2.4 10*3 1.0-4.0 Blood monocytes automated count (number/volume) 1. 0 10*3 0.0-1.0 Automated eosinophil count 0.1 10*3/uL 0 .0-0.3 Automated blood basophil count (count/volume) 0.0 10*3/uL 0.0-0.1 Blood type T Indirect antibody screen pa jonah - 03/19/19 06:20 WRISTBAND NUMBER [id number] NRG ABO+Rh group ON NRG Blood group antibody screen NEGATIVE NR G Complete blood count (CBC) with automate d white blood cell (WBC) differential - 03/21/19 05:22 Blood leukocytes automated count (number/volume) 14.5 10*3/uL 4.3-11.0 Blood erythrocytes automated count (number/volume) 2.93 10*6/uL 4.35-5.85 Venous blood hemoglobin measurement (mass/volume) 6.1 g/dL 11.5-16.0 Blood hematocrit (volume fraction) 21 % 35-52 Automated erythrocyte mean corpuscular volume 70 [ foz_us] 80-99 Automated erythrocyte mean corpuscular h emoglobin (mass per erythrocyte) 21 pg 25-34 Automated erythrocyte mean corpuscular h emoglobin concentration measurement (mass/volume) 30 g/dL 32-36 Automated erythrocyte distribution width ratio 16. 2 % 10.0- 14.5 Automated blood platelet count (count/volume) 221 10*3/uL 130-400 Automated blood platelet mean volume measurement 12.2 [foz_us] 7.4-10.4 Automated blood neutrophils/100 leukocytes 75 % 42-75 Automated blood lymphocytes/100 leukocytes 18 % 12-44 Blood monocytes/100 leukocytes 5 % 0-12 Automated blood eosinophils/100 leukocytes 1 % 0-10 Automated blood basophils/100 leukocytes 0 % 0-10 Blood neutrophils automated count (number/volume) 10.9 10*3 1.8-7.8 Blood lymphocytes automated count (number/volume) 2.7 10*3 1.0-4.0 Blood monocytes automated count (number/volume) 0. 8 10*3 0.0-1.0 Automated eosinophil count 0.2 10*3/uL 0 .0-0.3 Automated blood basophil count (count/volume) 0.0 10*3/uL 0.0-0.1 Radiology Report from [facility] on 2013 17:08:00 DIAGNOSTIC SHAHAB GING REPORT [facility] - [address] [address] PHONE #: [phone] FAX #: [phone] Name: CHEN REINA Loc: [facility] Radiology No: : 2000 Age: 13 Sex: F Status: REG ER Unit No: [id number] Phys: FLORENTINOGriselda Yanes Acct: [id number] Reason For Exam: syncope, headaches, hit head, r Exam Date: 10/01/2013 EXAMS: CPT CODE: [id number] CT HEAD W/O CONTRAST 25952 TIME OF EXAM: 10/01/2013 4:25 PM REASON FOR EXAM: syncope, headaches, hit head COMPARISON: None. TECHNIQUE: Routine non- contrast enhanced helical images were obtained from the skull base to the vertex. FINDINGS: The ventricles and cortical sulci are age-appropriate. There is no midline shift or mass-effect. No acute intra-axial hemorrhage is seen. The garcia-white matter differentiation is within normal limits. There is no CT evidence of acute intracranial abnormality. There are no abnormal areas of increased or decreased density to suggest acute hemorrhage or edema. No extra-axial masses or collections are present. The paranasal sinuses and mastoid air cells are well pneumatized. The globes, orbits, calvarium, and soft tissues are unremarkable. IMPRESSION: 1. No evidence of acute intracranial abnormality. No hemorrhage or focal intra-axial mass. The above report was discussed by Dr. Lechuga with WOJCIECH Pike on 10/01/2013 at 4:37 PM. I have personally reviewed these images and approved or corrected the resident physician's interpretation. at 1700 RESIDENT: MATTHEW LECHUGA MD Reported and signed by: CHARLEEN BOREDN MD CC: Technologist: ERUM MONTOYA Transcribed Date/Time: 10/01/2013 (1700)Alligator Shear Operator: [email or web address] Printed Date/Time: 10/01/2013 (7792) BATCH NO: N/A PAGE 1 Signed Report Encounters ACCT No. Visit Date/Time Discharge Status Pt. Type Provider Facility Loc./Unit Complaint [id number] 03/12/2019 13:15:00 03/12/2019 23:59: 59 [facility] Outpatient MITCHELL CASTELAN [facility] [id number] 02/27/2019 13:45:00 Document Registration [id number] 01/16/2019 13:00:00 Document Registration [id number] 10/09/2018 09:30:00 Document Registration [id number] 07/17/2018 10:30:00 Document Registration [id number] 07/12/2017 19:23:00 018 22:14:00 DIS Emergency Jorge Alberto GALVAN [facility] W.EDS [id number] 10/01/2013 15:03:00 014 17:07:00 DIS Emergency Leroy Smith DO [facility] W.EDW [id number] 03/21/2019 21:24:00 019 21:45:00 DIS Emergency DAPHNIE MCINTYRE DO [facility] ER FS LEGS SWOLLEN [id number] 03/19/2019 06:05:00 019 11:20:00 DIS Inpatient BALDEMAR CÁRDENAS DO [facility] LDRP INDUCTION [id number] 09/12/2018 08:53:00 23:59:59 CLS Outpatient BALDEMAR CÁRDENAS DO [facility] LAB FS GENDER SCREEN [id number] 07/14/2018 21:32:00 00:01:00 DIS Emergency WHEATLEY MEGAN GALVAN [facility] ER FS LOW BACK PAIN, PT FOUND OUT , HR NEGATIVE
== END 2019-03-21 11:20 | disposition home or self-care (01) | DRG 807 ==
LOC: LDRP 06:05
PROVIDERS: ADMIT Obstetrics & Gynecology; ATTEND Obstetrics & Gynecology
PROC: 3E033VJ Introduction of Other Hormone into Peripheral Vein, Percutaneous Approach (ICD-10-PCS; 2019-03-19)
PROC: 10E0XZZ Delivery of Products of Conception, External Approach (ICD-10-PCS; principal; 2019-03-20)
PROC: 0W8NXZZ Division of Female Perineum, External Approach (ICD-10-PCS; 2019-03-20)
DX: O76 Abnormality in fetal heart rate and rhythm complicating labor and delivery (principal); Z37.0 Single live birth; Z3A.39 39 weeks gestation of pregnancy
CPT/HCPCS: 36415; 85025; 86850; 86900; 86901

== ENCOUNTER 2019-03-21 21:22 | Emergency (ER) | payer MEDICAID ==
[~2019-03-21] VITALS: Ht 170.1 cm; Wt 87.2 kg
[~2019-03-21 21:22] MED LIST: ACET-78 PO; DOCU100C37 PO; IBUP-1780 PO; OXC5T PO
[2019-03-21 21:41] VITALS: BP 129/78
--- NOTE | 2019-03-21 21:44 | ED Lower Extremity ---
General Chief Complaint: Lower Extremity Stated Complaint: LEGS SWOLLEN Source: patient Exam Limitations: no limitations History of Present Illness Date Seen by Provider: Mar 21, 2019 Time Seen by Provider: 21:28 Initial Comments 18-year-old female presents with bilateral lower extremity swelling. Patient reports that she had a baby 2 days ago in [place]. That they flew the child to [facility] in [place]. That she is been traveling back and forth b etween the hospital. That her bilateral lower legs are swollen and tender. There is no erythema. No headaches, no problems with elevated blood pressure no history of preeclampsia. Baby was born by normal vaginal delivery. Allergies and Home Medications Allergies Coded Allergies: No Known Drug Allergies (Unverified , 03/19/19) Home Medications Acetaminophen 500 Mg Tablet, 1,000 MG PO Q6HR Prescribed by: BALDEMAR CÁRDENAS on 03/21/19 0548 Docusate Sodium 100 Mg Capsule, 100 MG PO BID Prescribed by: BALDEMAR WENS on 03/21/19 0548 Ibuprofen 800 Mg Tablet, 800 MG PO Q8HR Prescribed by: BALDEMAR CÁRDENAS on 03/21/19 0548 Oxycodone Hcl 5 Mg Tab, 5 MG PO Q6H PRN for PAIN-SEVERE (8-10) Prescribed by: BALDEMAR CÁRDENAS on 03/21/19 0548 Patient Home Medication List Home Medication List Reviewed: Yes Review of Systems Constitutional: No chills, No fever EENTM: no symptoms reported Respiratory: no symptoms reported Cardiovascular: edema (bilateral lower legs) Musculoskeletal: see HPI Skin: no symptoms reported Psychiatric/Neurological: No Symptoms Reported Past Mpwrnxe-Nkuana-Diuewp Hx Past Med/Social Hx: Reviewed Nursing Past Med/Soc Hx Patient Social History 2nd Hand Smoke Exposure: No Recent Foreign Travel: No Contact w/Someone Who Travel: No Recent Hopitalizations: No Seasonal Allergies Seasonal Allergies: No Past Medical History Surgeries: No Respiratory: No Cardiac: No Neurological: No Sexually Transmitted Disease: No HIV/AIDS: No Genitourinary: No Gastrointestinal: No Musculoskeletal: No Endocrine: No HEENT: No Cancer: No Psychosocial: No Integumentary: No Blood Disorders: No Family Medical History Patient reports no known family medical history. Physical Exam Vital Signs Capillary Refill : Height, Weight, BMI Height: 5'5.00" Weight: 151lbs. oz. 68.692189qx; 29.50 BMI Method:Stated General Appearance: WD/WN, no apparent distress Neck: full range of motion, supple Cardiovascular: normal peripheral pulses, regular rate, rhythm Respiratory: chest non-tender, lungs clear, normal breath sounds Hips: bilateral hip non-tender Legs: bilateral leg swelling (2+ edema up to her knees, bilateral) Knees: bilateral knee non-tender Ankles: bilateral ankle swelling Feet: bilateral foot swelling Neurologic/Psychiatric: equipment operating engineer II-XII nml as tested, no motor/sensory deficits, alert, normal mood/affect Skin: normal color, warm/dry Progress/Results/Core Measures Progress Progress Note : Time: 21:40 Progress Note Patient's symptoms consistent with normal bilateral lower extremity swelling. Exacerbated by her frequent sitting in a car for her travels between here and [facility]. I discussed with her she can try Saul wrap or compression stockings along with some elevation. That if her symptoms do not improve and approximately 10 days she should follow-up with her OB or primary care provider or if they get signally worse she should follow-up with her OB. Departure Impression Primary Impression: Gestational edema, Disposition: HOME, SELF-CARE Condition: Stable Departure-Patient Inst. Referrals: NO,LOCAL PHYSICIAN (PCP/Family) Primary Care Physician Patient Instructions: Dependent Edema (DC) Add. Discharge Instructions: Follow-up with your primary care provider or your OB if no improvement in approximately 10 days or sooner if symptoms continue to worsen The Emergency Department focuses on treating and ruling out life-threatening diseases. Whenever possible, a diagnosis is given. However most patient's are given an impression based on the history, physical exam, and workup during their brief time in the ER. Information about probable diagnosis and other educational material has been provided. Please take the time to read and understand this information. It is very important that he follow up with a doctor as discussed during her visit today. Failure to adhere to your follow-up instructions may result in severe disability, injury or so please make sure to keep your appointments. Please keep in mind the emergency department is not designed to be your primary care or "family doctor" and not urgent issues are best evaluated by an outpatient physician All discharge instructions reviewed with patient and/or family. Voiced understanding. DAPHNIE MCINTYRE DO Mar 21, 2019 21:44 POS
--- OUTSIDE RECORDS SUMMARY | 2019-04-16 19:03 | XMS REPORT | Continuity of Care Document ---
Author Organization Unknown Address Unknown Phone Unavailable Allergies Active Description Code Type Severity Reaction Onset Reported/Identified Relationship to Patient Clinical Status Yes No Known Allergies No Known Allergies Drug Allergy Unknown N/A 10/01/2013 Yes No Known Drug Allergies [id number] Drug Allergy Unknown N/A 03/19/2019 Medications There is no data. Problems Date Dx Coded Attending Type Code Diagnosis Diagnosed By 07/15/2018 MEGAN WHEATLEY DO Ot O26.891 OT RELATED CONDITIONS, FIRST 07/15/2018 [...] Code Description Performed By Per radha On [id number] IN TRODUCTION OF OTH HORMONE INTO PERIPH 03/19/2019 [id number] DI VISION OF FEMALE PERINEUM, EXTERNAL AP 03/20/2019 [id number] DE LIVERY OF PRODUCTS OF CONCEPTION, EXTE [...] NRG STATEMENT OF ADEQUACY: NRG INTERPRETATION/RESULT: NRG INTERNET ARCHITECT: NRG COMMENT NRG QUAD SCREEN - 10/09/18 [...] pa jonah - 03/19/19 06:20 WRISTBAND NUMBER [id number] NRG ABO+Rh group ON NRG Blood group [...] on 2013 17:08:00 DIAGNOSTIC SHAHAB GING REPORT [facility] - [address] [address] PHONE #: [phone] FAX #: [phone] Name: CHEN REINA Loc: [facility] Radiology No: : 2000 Age: 13 Sex: F Status: REG ER Unit No: [id number] Phys: FLORENTINOGriselda Yanes Acct: [id number] Reason For Exam: syncope, headaches, hit head, r Exam Date: 10/01/2013 EXAMS: CPT CODE: [id number] CT HEAD W/O CONTRAST 82290 TIME OF EXAM: 10/01/2013 4:25 PM REASON [...] LECHUGA MD Reported and signed by: CHARLEEN BORDEN MD CC: Technologist: ERUM MONTOYA Transcribed Date/Time: 10/01/2013 (1700)Bull Gang Supervisor: [email or web address] Printed Date/Time: 10/01/2013 (8226) BATCH NO: N/A PAGE 1 Signed Report Encounters ACCT No. Visit Date/Time Discharge Status Pt. Type Provider Facility Loc./Unit Complaint [id number] 03/12/2019 13:15:00 03/12/2019 23:59: 59 [facility] Outpatient MITCHELL CASTELAN [facility] [place] [id number] 02/27/2019 13:45:00 Document Registration [id number] 01/16/2019 13:00:00 Document Registration [id number] 10/09/2018 09:30:00 Document Registration [id number] 07/17/2018 10:30:00 Document Registration [id number] 07/12/2017 19:23:00 018 22:14:00 DIS Emergency Jorge Alberto GALVAN [facility] W.EDS [id number] 10/01/2013 15:03:00 014 17:07:00 DIS Emergency Leroy Smith DO [facility] W.EDW [id number] 03/21/2019 21:24:00 019 21:45:00 DIS Emergency DAPHNIE MCINTYRE DO [facility] ER FS LEGS SWOLLEN [id number] 03/19/2019 06:05:00 019 11:20:00 DIS Inpatient BALDEMAR CÁRDENAS DO [facility] LDRP INDUCTION [id number] 09/12/2018 08:53:00 23:59:59 CLS Outpatient BALDEMAR CÁRDENAS DO [facility] LAB FS GENDER SCREEN [id number] 07/14/2018 21:32:00 00:01:00 DIS Emergency WHEATLEY MEGAN GALVAN [facility] ER FS LOW BACK PAIN, PT FOUND OUT , HR NEGATIVE
== END 2019-03-21 21:45 | disposition home or self-care (01) ==
LOC: EDUNIT# 21:22 → ER FS 21:24
DX: O12.05 Gestational edema, complicating the puerperium (principal)
CPT/HCPCS: 99283